=== PATIENT | male | born 1955 | race Caucasian/White ===

== ENCOUNTER 2020-04-13 11:29 | Outpatient (REF) | payer OTHER, SELFPAY | END 2020-04-13 11:30 | disposition home or self-care (01) | LOC: HO.HOSX 11:29 | PROVIDERS: Visit Provider Orthopaedic Surgery | DX: Z13.89 Encounter for screening for other disorder (principal) ==

== ENCOUNTER 2020-04-14 10:11 | Outpatient (REF) | payer OTHER, SELFPAY ==
--- NOTE | 2020-04-14 10:18 | CT_ITS ---
EXAMINATION: CT CHEST SCREENING CLINICAL INFORMATION: Nicotine dependence. COMPARISON: CT chest 04/05/2019, 10/04/2018 TECHNIQUE: Multidetector volumetric CT imaging of the chest is performed without contrast using low dose technique. Additional 2D coronal and sagittal reformatted images and axial 3D maximum intensity projection (MIP) images are generated on the CT workstation. This CT examination was performed using dose optimization techniques as appropriate, variously including the following: *Automated exposure control *Adjustment of mA and/or kV according to patient size (this includes techniques or standardized protocols for targeted exams where dose is matched to indication/reason for exam; i.e. extremities or head) *Use of iterative reconstruction technique DLP: 55 mGy-cm FINDINGS: LUNGS: The lungs are expanded. There are 2 mm nodules scattered throughout the lungs; for example, right upper lobe axial image 133/6, left upper lobe image 186/6, right upper lobe axial image 30/4, subpleural nodule in lingula axial image 273/6, and perivascular 6 mm ground-glass density right lower lobe axial image 48/4. These nodules are essentially unchanged from the last CT exam. No acute pneumonic process seen. MEDIASTINUM: The thyroid lobes are symmetric and normal. The central trachea and bronchi are widely patent. Heart size and the great vessels are normal. There is atherosclerotic calcification of thoracic arch and coronary arteries. There is no pericardial effusion. No abnormal lymph nodes seen. PLEURA: There is no pleural effusion. No pleural mass or thickening. AXILLA: Small shotty lymph nodes are seen in bilateral axilla. UPPER ABDOMEN: Visualized liver, spleen, pancreas and bilateral adrenal glands are unremarkable. OSSEOUS STRUCTURES: Mild ventral spondylosis noted. No lytic or sclerotic process seen. CT/CT lung screening IMPRESSION: Stable bilateral small pulmonary nodules. No new nodules seen. ASSESSMENT: Lung-RADS category 2: Benign RECOMMENDATION: Low-dose annual CT chest.
== END 2020-04-14 10:12 | disposition home or self-care (01) ==
LOC: HO.CT 10:11
PROVIDERS: Visit Provider Surgery
DX: F17.210 Nicotine dependence, cigarettes, uncomplicated (principal)
CPT/HCPCS: 71250

== ENCOUNTER → 2020-05-19 09:05 | Outpatient (BNVA) | payer OTHER, SELFPAY | PROVIDERS: Visit Provider Orthopaedic Surgery | DX: M17.11 Unilateral primary osteoarthritis, right knee (principal); I25.10 Atherosclerotic heart disease of native coronary artery without angina pectoris; J43.9 Emphysema, unspecified; Z98.890 Other specified postprocedural states | CPT/HCPCS: 99212; J1100 ==

== ENCOUNTER 2021-05-05 10:31 | Outpatient (REF) | payer OTHER, SELFPAY ==
[2021-05-05 13:54] LABS: Binax Internal Control QC Valid; Binax Lot number: 9864; Binax Now Covid-19 Ag Negative (Negative)
== END 2021-05-05 10:32 | disposition home or self-care (01) ==
LOC: HO.LAB 10:31
PROVIDERS: Visit Provider Internal Medicine
DX: Z20.822 Contact with and (suspected) exposure to COVID-19 (principal)
CPT/HCPCS: 36415

== ENCOUNTER 2021-08-13 12:44 | Outpatient (REF) | payer OTHER, SELFPAY ==
--- NOTE | ~2021-08-13 | CT_ITS ---
EXAMINATION: CT CHEST SCREENING CLINICAL INFORMATION: Smoker. COMPARISON: CT chest 04/14/2020 TECHNIQUE: Multidetector volumetric CT imaging of the chest is performed without contrast using low dose technique. Additional 2-D coronal and sagittal reformatted images and axial 3-D maximum intensity projection (MIP) images are generated on the CT workstation. This CT examination was performed using dose optimization techniques as appropriate, variously including the following: *Automated exposure control *Adjustment of mA and/or kV according to patient size (this includes techniques or standardized protocols for targeted exams where dose is matched to indication/reason for exam; i.e. extremities or head) *Use of iterative reconstruction technique DLP: 88 mGy-cm FINDINGS: LUNGS: The lungs are well expanded and clear of acute pneumonic consolidation. Previously seen 2 mm pulmonary nodules in both upper lobes are not visualized at this time. There is an ill-defined perivascular density measuring 6 mm in the right lower lobe on axial image 53/4, stable. No new pulmonary nodules seen. MEDIASTINUM: The heart size and the great vessels are normal caliber. The thyroid lobes are symmetric and normal. The central trachea and bronchi are widely patent. There are small shotty mediastinal lymph nodes with a pretracheal lymph node measuring 8 mm. There are coronary artery calcifications present. There is no pericardial effusion. PLEURA: There is no pleural effusion. No pleural mass or thickening. AXILLA: No lymphadenopathy. UPPER ABDOMEN: Visualized liver, spleen, pancreas, and bilateral adrenal glands are unremarkable. OSSEOUS STRUCTURES: No lytic or sclerotic process seen. CT/CT lung screening IMPRESSION: Interval resolution of 2 mm pulmonary nodules in both upper lobes. Ill-defined 6 mm perivascular ground-glass density nodule in right lower lobe is stable. ASSESSMENT: Lung-RADS category 2: Benign. RECOMMENDATION: Low-dose annual CT chest.
--- NOTE | ~2021-08-13 | XR_ITS ---
EXAMINATION: XR LUMBOSACRAL SPINE CLINICAL INFORMATION: Lumbago with sciatica, right side COMPARISON: CT abdomen and pelvis 07/31/2016 TECHNIQUE: Three views of the lumbosacral spine. FINDINGS: Mild convex right scoliotic curvature in the lumbar spine centered at L3. Vertebral body heights are preserved. Moderate to severe degenerative disc disease with endplate sclerosis at L5-S1. Minimal anterolisthesis of L3 on L4. Posterior elements are intact. Extensive atherosclerotic plaque throughout the abdominal aorta. Sacroiliac joints intact. XR/XR lumbar spine 2-3V IMPRESSION: 1. Moderate to severe degenerative disc disease at L5-S1. 2. Mild scoliotic curvature in the lumbar spine. 3. Minimal anterolisthesis of L3 on L4
== END 2021-08-13 12:45 | disposition home or self-care (01) ==
LOC: HO.XRAY 12:44
PROVIDERS: PCP General Practice; Visit Provider Physician Assistant Medical
DX: M54.41 Lumbago with sciatica, right side (principal)
CPT/HCPCS: 71271; 72100

== ENCOUNTER 2021-09-17 10:00 | Outpatient (RCR) | payer OTHER, SELFPAY | END 2021-10-28 16:46 | disposition home or self-care (01) | LOC: HO.PT 10:00 | PROVIDERS: PCP General Practice; Visit Provider General Practice | DX: M54.41 Lumbago with sciatica, right side (principal) | CPT/HCPCS: 97110; 97162; 97530 ==

== ENCOUNTER 2021-11-04 10:04 | Outpatient (REF) | payer OTHER, SELFPAY ==
--- NOTE | ~2021-11-04 | CT_ITS ---
EXAMINATION: CT CHEST WITHOUT CONTRAST CLINICAL INFORMATION: Pulmonary nodule. COMPARISON: Chest 08/13/2021. TECHNIQUE: Multidetector volumetric CT imaging of the chest was done. Axial MIP volume rendering provided. Sagittal and coronal reformatted images were obtained. This CT examination was performed using dose optimization techniques as appropriate, variously including the following: *Automated exposure control *Adjustment of mA and/or kV according to patient size (this includes techniques or standardized protocols for targeted exams where dose is matched to indication/reason for exam; i.e. extremities or head) *Use of iterative reconstruction technique DLP: 172 mGy-cm FINDINGS: ROOM SERVICE ATTENDANT: Unremarkable. LUNGS: There are two 2 mm nodules in the right upper lobe peripherally-based axial image 120/7. There is focal atelectatic changes in the lingula. A 5 mm ground-glass attenuation is seen in the right lower lobe posterior medial basal segment. No additional nodules are seen. MEDIASTINUM: The thyroid lobes are symmetric and normal. The central trachea and the bronchi are widely patent. The heart size and the great vessels are normal caliber. There are moderate coronary artery calcifications present. There is no pericardial effusion seen. No abnormal size mediastinal or hilar lymph nodes seen. PLEURA: There is no pleural effusion. No pleural mass or thickening. AXILLA: There is a 9 mm nodule in the left axilla. The chest wall is unremarkable. UPPER ABDOMEN: Visualized liver, spleen, pancreas and bilateral adrenal glands are unremarkable. There are no radiopaque gallstones. OSSEOUS STRUCTURES: No lytic or sclerotic process is seen. There is mild ventral spondylosis in the mid and lower dorsal spine. CT/CT chest wo con IMPRESSION: Two 2 mm nodules in right upper lobe are now visualized from the 2nd last exam 04/14/2022. Ground-glass nodule measuring 5 mm in the right lower lobe is stable. No new pulmonary nodules are seen. Fleischner guidelines were followed.
== END 2021-11-04 10:05 | disposition home or self-care (01) ==
LOC: HO.CT 10:04
PROVIDERS: Visit Provider General Practice
DX: R91.1 Solitary pulmonary nodule (principal)
CPT/HCPCS: 71250

== ENCOUNTER 2022-02-11 11:42 | Outpatient (REF) | payer OTHER, SELFPAY ==
--- NOTE | 2022-02-11 09:15 | EMG_ITS ---
Right tibial and peroneal motor and sensory studies were performed. Right superficial peroneal and sural sensory studies were performed. Tibial H-reflex was obtained and paraspinal muscles were tested with a needle. 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 MD ANALI Reinoso/YODIT / [id number]
== END 2022-02-11 11:43 | disposition home or self-care (01) ==
LOC: HO.NEURO 11:42
PROVIDERS: Visit Provider Family Medicine
DX: M54.41 Lumbago with sciatica, right side (principal)
CPT/HCPCS: 95886; 95909

== ENCOUNTER → 2022-04-16 11:05 | Outpatient (BNVA) | payer OTHER, SELFPAY | PROVIDERS: PCP General Practice; Visit Provider Internal Medicine Endocrinology, Diabetes & Metabolism | DX: E11.9 Type 2 diabetes mellitus without complications (principal); Z79.84 Long term (current) use of oral hypoglycemic drugs | CPT/HCPCS: 82947; 83036; 99202 ==

== ENCOUNTER 2022-04-19 08:33 | Outpatient (REF) | payer OTHER, SELFPAY ==
[2022-04-19 09:38] LABS: Creatinine Urine 108.08 mg/dL; Microalbum/Creatinine Ratio Ur 42.5 ug/mg cr
[2022-04-19 09:41] LABS: Anion Gap 10 (12-20); Blood Urea Nitrogen 8 mg/dL (9-16); Calcium 9.7 mg/dL (8.4-10.2); Carbon Dioxide 29 mmol/L (22-29); Chloride 108 mmol/L (96-108); Cholesterol 139 mg/dL; Estimated Glomerular Filt Rate > 60; Glucose Random 159 mg/dL (60-115); HDL Cholesterol 33 mg/dL; LDL Cholesterol Calculated 80 mg/dl; Potassium 4.5 mmol/L (3.3-5.1); Sodium 142 mmol/L (135-145); Triglycerides 134 mg/dL
== END 2022-04-19 08:34 | disposition home or self-care (01) ==
LOC: HO.LAB 08:33
PROVIDERS: Visit Provider Internal Medicine Endocrinology, Diabetes & Metabolism
DX: E11.9 Type 2 diabetes mellitus without complications (principal)
CPT/HCPCS: 36415; 80048; 80061; 82043

== ENCOUNTER → 2022-08-03 09:58 | Outpatient (BNVA) | payer OTHER, SELFPAY | PROVIDERS: PCP General Practice; Visit Provider Dietitian, Registered | DX: E11.9 Type 2 diabetes mellitus without complications (principal) | CPT/HCPCS: 97802 ==

== ENCOUNTER → 2022-08-31 12:26 | Outpatient (BNVA) | payer OTHER, SELFPAY | PROVIDERS: PCP General Practice; Visit Provider Dietitian, Registered | DX: E11.9 Type 2 diabetes mellitus without complications (principal) | CPT/HCPCS: 97803 ==

== ENCOUNTER 2022-09-06 14:12 | Outpatient (REF) | payer OTHER, SELFPAY ==
--- NOTE | ~2022-09-06 | XR_ITS ---
EXAMINATION: XR RIBS, LEFT CLINICAL INFORMATION: Posterior left-sided rib pain COMPARISON: Chest x-ray July 2016. TECHNIQUE: 3 views of the left ribs were obtained. Single chest x-ray performed. Chest x-ray is slightly rotated to the right. FINDINGS: No airspace consolidation. Pleural surfaces are clear. There is stable mild tortuosity of the descending thoracic aorta. No appreciable pneumothorax. Visualized ribs are intact. No acute fracture or erosive process observed. XR/XR ribs LT min 3V w CXR1V IMPRESSION: No evidence for acute process.
== END 2022-09-06 14:13 | disposition home or self-care (01) ==
LOC: HO.HHCX 14:12
PROVIDERS: Referring Provider Emergency Medicine; Visit Provider Emergency Medicine
DX: R07.81 Pleurodynia (principal)
CPT/HCPCS: 71101

== ENCOUNTER → 2022-09-09 07:52 | Outpatient (BNVA) | payer OTHER, SELFPAY | PROVIDERS: PCP General Practice; Visit Provider Registered Nurse Diabetes Educator | DX: E11.9 Type 2 diabetes mellitus without complications (principal) | CPT/HCPCS: 99211 ==

== ENCOUNTER → 2022-09-17 09:56 | Outpatient (BNVA) | payer OTHER, SELFPAY | PROVIDERS: PCP General Practice; Visit Provider Internal Medicine Endocrinology, Diabetes & Metabolism | DX: E11.9 Type 2 diabetes mellitus without complications (principal) | CPT/HCPCS: 82947; 83036; 99212 ==

== ENCOUNTER → 2022-10-28 08:24 | Outpatient (BNVA) | payer OTHER, SELFPAY | PROVIDERS: PCP General Practice; Visit Provider Registered Nurse Diabetes Educator | DX: Z13.1 Encounter for screening for diabetes mellitus (principal) | CPT/HCPCS: 95250; 99211 ==

== ENCOUNTER 2022-11-01 13:10 | Outpatient (REF) | payer OTHER, SELFPAY | END 2022-11-01 13:11 | disposition home or self-care (01) | LOC: HO.HHCX 13:10 | PROVIDERS: Visit Provider Student in an Organized Health Care Education/Training Program | DX: M54.50 Low back pain, unspecified (principal) | CPT/HCPCS: 72100 ==

== ENCOUNTER 2022-11-24 08:27 | Outpatient (AMB) | payer OTHER, SELFPAY ==
--- NOTE | 2022-11-24 08:46 | A.OFFVIS_ITS ---
Intake Intake Visit Reasons: dm Lean Process Deployment Consultant Required: Yes Lean Process Deployment Consultant Language: Pedicab Driver Name: Mallika [id number] Information Interpreted: non-clinical & clinical Allergies No Known Allergies [No Known Allergies*] Allergy (Verified 04/16/22 11:24) [facility] Comprehensive Diabetes Asmnt Most Recent Diabetes Results: Microalb/Creat Ratio 42.5 ug/mg cr 04/19/22 Cholesterol 139 mg/dL 04/19/22 HDL Cholesterol 33 mg/dL 04/19/22 Triglycerides 134 mg/dL 04/19/22 Creatinine 0.77 mg/dL (0.5-1.4) 04/19/22 Blood Urea Nitrogen 8 mg/dL (9-16) L 04/19/22 Sodium 142 mmol/L (135-145) 04/19/22 Potassium 4.5 mmol/L (3.3-5.1) 04/19/22 Chloride 108 mmol/L (96-108) 04/19/22 Carbon Dioxide 29 mmol/L (22-29) 04/19/22 Calcium 9.7 mg/dL (8.4-10.2) 04/19/22 [facility] Medical History (Updated 04/16/22 @ 11:33 by Wilver Hendrix MD) CAD (coronary artery disease) Depression Diabetes mellitus Dyslipidemia Emphysema lung History of substance abuse Hypertension Pulmonary nodule Vitamin D deficiency Surgical History History of heart surgery Family History Mother No problems noted. Father No problems noted. Social History (Updated 04/16/22 @ 11:25 by BETH Weems) Household Members: None Alcohol intake: current Patient Tobacco Use Status: Current everyday Tobacco user Tobacco use type: Cigarette Current occupational status: disabled Current occupation: right handed Assessment & Plan Assessment & Plan (1) Diabetes mellitus: Code(s): E11.9 - Type 2 diabetes mellitus without complications Plan: professional Continuous Glucose Monitor: Patients CGM information reviewed Reviewed patient's sensor data: Hypoglycemia: ? 0% Hyperglycemia:? 3% Time in Range:? 97% Average glucose for the last 2 weeks? 126 mg/dL patient's last A1c on 09/17/2022 6.2% patient has 1 episode of hypoglycemia on glucometer download reviewed with patient how to treat hypoglycemia with rule of 15s Croatian handout given at this time patient's glucose control is very good patient given the opportunity to ask questions related to diabetes care and control. at last visit with Dr. Hendrix patient was discharged back to PCP for diabetes management Patient Instructions: instructed patient if hypoglycemic events increase to contact tobacco prevention health educator Coding Level of Care Code Est Pt Level 1 (61071) Diagnoses Diabetes mellitus E11.9
== END 2022-11-24 08:49 | disposition home or self-care (01) ==
PROVIDERS: PCP General Practice; Visit Provider Registered Nurse Diabetes Educator
DX: E11.9 Type 2 diabetes mellitus without complications (principal)

== ENCOUNTER → 2022-11-24 08:27 | Outpatient (BNVA) | payer OTHER, SELFPAY | PROVIDERS: PCP General Practice; Visit Provider Registered Nurse Diabetes Educator | DX: E11.9 Type 2 diabetes mellitus without complications (principal) | CPT/HCPCS: 99211 ==

== ENCOUNTER 2023-05-04 10:44 | Outpatient (REF) | payer OTHER, SELFPAY ==
--- NOTE | ~2023-05-04 | CT_ITS ---
EXAMINATION: CT CHEST LOW-DOSE SCREENING WITHOUT CONTRAST HISTORY: Asymptomatic patient meeting criteria for lung screening. PATIENT PACK-YEAR HISTORY: 56 Current Smoker: Yes If former smoker, years since quitting: N/A COMPARISON: CT chest 11/04/2021. TECHNIQUE: Multidetector volumetric noncontrast CT imaging of the chest was obtained on a Siemens Definition 64-slice scanner using low-dose screening CT technique. Axial thin section 0.625 mm reformations in soft tissue and lung windows were obtained. Sagittal and coronal reformations were obtained. Axial MIP images were also created and reviewed. RECONSTRUCTED WIDTH: 1.25 mm x 1.[address] examination was performed using dose optimization techniques as appropriate, variously including the following: *Automated exposure control *Adjustment of mA and/or kV according to patient size (this includes techniques or standardized protocols for targeted exams where dose is matched to indication/reason for exam; i.e. extremities or head) *Use of iterative reconstruction technique TOTAL EXAM DLP: 46 mGy-cm CTDIvol: 1.21 mGy FINDINGS: LUNGS: Lungs bilaterally symmetrically expanded. Mild emphysematous changes are present. Previously seen right upper lobe 2 mm nodule is barely perceptible on the current study and is decreased in size measuring about 1 mm (5:81 compare prior 7:118). No concerning or new focal lung nodule or mass. No effusion or pneumothorax. Central airways patent. LYMPHATIC STRUCTURES: No mediastinal, hilar or axillary adenopathy or free fluid collection. THYROID GLAND: Unremarkable to the extent seen. CARDIOVASCULAR STRUCTURES: Aortic and heart size normal. Extensive coronary artery calcifications. No pericardial effusion. UPPER ABDOMEN: Included portions of the solid organs in the upper abdomen unremarkable on noncontrast imaging. OSSEOUS STRUCTURES: No suspicious focal findings. Mild degenerative changes are present in the spine. SPINAL COMPRESSION: Absent. CT/CT lung screening IMPRESSION: No findings suspicious for malignancy. Tiny right upper lobe micronodule has decreased in size. LUNG-RADS CATEGORY ASSESSMENT: Negative. INCIDENTAL FINDINGS (S CATEGORY): Finding: No incidental findings. Significance category: Normal or normal variant. RECOMMENDATION: Low-dose lung CT overall in 1 year. Visual estimate of coronary calcified plaque burden: Mild. However, this exam cannot replace a dedicated cardiac CT calcium score for accurate assessment.
== END 2023-05-04 10:45 | disposition home or self-care (01) ==
LOC: HO.CT 10:44
PROVIDERS: PCP General Practice; Visit Provider Physician Assistant Medical
DX: Z12.2 Encounter for screening for malignant neoplasm of respiratory organs (principal); F17.210 Nicotine dependence, cigarettes, uncomplicated
CPT/HCPCS: 71271

== ENCOUNTER 2023-07-08 11:08 | Outpatient (REF) | payer OTHER, SELFPAY ==
[2023-07-08 14:04] LABS: Alanine Aminotransferase 22 U/L (0-40); Albumin Level 4.3 g/dL (3.5-5.0); Alkaline Phosphatase 84 U/L (39-117); Anion Gap 10 (12-20); Aspartate Amino Transferase 19 U/L (5-37); Bilirubin Total 0.3 mg/dL (0.0-1.0); Blood Urea Nitrogen 14 mg/dL (9-16); Calcium 10.2 mg/dL (8.4-10.2); Carbon Dioxide 28 mmol/L (22-29); Chloride 106 mmol/L (96-108); Cholesterol 181 mg/dL (<200); Estimated Glomerular Filt Rate > 60; Glucose Random 177 mg/dL (60-115); HDL Cholesterol 37 mg/dL (>40); LDL Cholesterol Calculated 115 mg/dL (<100); Potassium 4.3 mmol/L (3.3-5.1); Sodium 140 mmol/L (135-145); Total Protein 7.5 g/dL (6.5-8.0); Triglycerides 148 mg/dL (<150)
[2023-07-08 14:40] LABS: Creatinine Urine 172.32 mg/dL; Microalbum/Creatinine Ratio Ur 65.5 ug/mg cr (<30)
== END 2023-07-08 11:09 | disposition home or self-care (01) ==
LOC: HO.HHCL 11:08
PROVIDERS: Visit Provider General Practice
DX: E11.65 Type 2 diabetes mellitus with hyperglycemia (principal)
CPT/HCPCS: 36415; 80053; 80061; 82043; 82570

== ENCOUNTER 2024-05-23 08:30 | Outpatient (REF) | payer OTHER, SELFPAY ==
--- NOTE | ~2024-05-23 | CT_ITS ---
CLINICAL HISTORY: F17.210 - Nicotine dependence, cigarettes, uncomplicated CT lung cancer screening (LDCT) Comparison: None Technique: Axial CT images of the chest using low-dose technique. Referring provider counseled the patient on shared decision-making for LDCT screening. Additional counseling was provided on smoking cessation. Effective radiation dose total: DLP 40 mGycm, CTDIvol 1.3 mGy. Findings: Part solid approximate 10 mm nodule medial right lower lobe pulmonary nodule current image 370 series 6 is stable to the multiple prior CTs, including 04/14/2020 CT. No appreciable new or progressive nodule. Stable scarring lingular segment left upper lobe. Few additional subtle fibronodular changes likely on the basis of mild fibrosis. Previously identified small apical lung nodules are less apparent. Mild micronodular change suggesting underlying respiratory bronchiolitis as on priors. Thoracic inlet intact. No thyroid nodule. Stable mediastinal and upper abdomen. Extensive coronary artery calcification. No pathologic appearing adenopathy. Impression: Lung rads 2. Benign appearance. Management: Continue annual screening. Category 1: Normal; continue annual screening Category 2: Benign appearance or behavior, continue annual screening Category 3: Probably benign, [address] recommended Category 4A: Suspicious, [address] recommended; may consider PET/CT Category 4B: Suspicious, Additional diagnostics and/or tissue sampling recommended Category 4X: Suspicious, Additional diagnostics and/or tissue sampling recommended Category 0: Recalls (incomplete screen due to Incomplete coverage, Noise, Respiratory motion, Expiration, Obscured by acute abnormality) This document has been electronically signed by: Alan Hunt MD on 05/23/2024 12:29:58
--- OUTSIDE RECORDS SUMMARY | 2024-05-23 08:41 | XMS_ITS | Clinical Summary ---
Author Organization [employer] Address [address] [place] [address] Care Team Providers Care Tooth Polisher Name Role Phone Yvette Hahn MD Primary Care Provider [phone] Allergies No known active allergies Medications Diclofenac Sodium 1 % gel APPLY TO THE AFFECTED AREA(S) 2 GRAMS TOPICALLY TWICE DAILY NEEDED FOR PAIN 2 Active UltiCare Mini Pen Pryor 31G X 6 MM misc USE DIRECTED WITH LANTUS EVERY EVENING 100 each 5 4 Active triamcinolone (Kenalog) 0.1 % creamIndications: Poison reji dermatitis Apply topically if needed in the morning and at bedtime for rash. Avoid face and genitals 30 g 2 4 Active carvedilol (Coreg) 6.25 MG tabletIndications :Primary hypertension Take 1 tablet (6.25 mg) by mouth with breakfast and with evening meal. 180 tablet 3 4 Active cholecalciferol (D3 Super Strength) 50 MCG (2000 UT) capsuleIndication s:Vitamin D deficiency Take 1 capsule (50 mcg) by mouth in the morning. 90 capsule 3 4 Active glipiZIDE-metFORM IN (Metaglip) 2.5-500 MG tabletIndications :Type 2 diabetes mellitus with hyperglycemia, with long-term current use of insulin ([facility]) Take 2 tablets by mouth before breakfast and before evening meal. 120 tablet 3 4 Active insulin glargine (Lantus SoloStar) 100 UNIT/ML penIndications:Ty pe 2 diabetes mellitus with hyperglycemia, with long-term current use of insulin (CMS/[facility]) Inject 40 Units under the skin at bedtime. 15 mL 8 4 12/13/19 25 Active lisinopril 10 MG tabletIndications :Essential hypertension Take 1 tablet (10 mg) by mouth in the morning. 90 tablet 3 4 Active dulaglutide (Trulicity) 0.75 MG/0.5ML solution pen-injectorIndic ations:Type 2 diabetes mellitus with hyperglycemia, with long-term current use of insulin ([facility]) Inject 0.75 mg under the skin 1 (one) time per week. 2 mL 11 4 Active dapagliflozin (Farxiga) 10 MGIndications:Typ e 2 diabetes mellitus with hyperglycemia, with long-term current use of insulin ([facility]) Take 1 tablet (10 mg) by mouth in the morning. 90 tablet 3 4 Active clopidogrel (Plavix) 75 MG tabletIndications :Acute ST elevation myocardial infarction (STEMI), unspecified artery ([facility]) Take 1 tablet (75 mg) by mouth in the morning. 90 tablet 3 4 Active atorvastatin (Lipitor) 80 MG tabletIndications :Type 2 diabetes mellitus with hyperglycemia, with long-term current use of insulin ([facility]) Take 1 tablet (80 mg) by mouth at bedtime. 90 tablet 3 4 Active aspirin (Aspirin Adult Low Strength) 81 MG EC tabletIndications :Type 2 diabetes mellitus with hyperglycemia, with long-term current use of insulin ([facility]) Take 1 tablet (81 mg) by mouth at bedtime. 90 tablet 3 4 Active Skin Protectants, Misc. (Minerin Creme) cream APPLY TOPICALLY TO SKIN NEEDED FOR DRY SKIN 454 g 1 4 Active TRUEplus Lancets 33G miscIndications:T ype 2 diabetes mellitus with hyperglycemia, with long-term current use of insulin ([facility]) USE TO TEST BLOOD SUGAR THREE TIMES DAILY 100 each 11 4 Active Alcohol Swabs (Alcohol Prep) 70 % pads USE DIRECTED FOUR TIMES DAILY 100 each 11 4 Active glucose blood (FREESTYLE LITE) test strip USE DIRECTED TO TEST BLOOD SUGAR THREE TIMES DAILY 100 strip 1 4 Active Active Problems Problem Noted Date Diagnosed Date Lung mass 11/01/2022 Osteoarthritis of right knee 01/11/[address] 10/04/2018 Type 2 diabetes mellitus 12/05/2017 Assessment & Plan (01/09/2024 12:35 PM EDT): Unable to obtain up to date sugars as patient cannot come into office, will defer A1C and foot exam to next in person visit Continue current medication regimen Assessment & Plan (07/08/2023 11:11 AM EST): Current A1c: 7.6 BMP: today Microalbumin: Foot Exam: Complete at follow up Eye Exam: 05/2023 Lipid panel: today ASCVD: Calculate pending updated labs Statin: Yes ASA: Yes JHONNY/ARB: Yes Encouraged regular aerobic exercise for improved glycemic control Encouraged daily foot checks Encouraged lean protein snacks and to avoid foods high in sugar and simple carbohydrates Treatment Goals: A1c goal: <7% FBG goal: <130 2 hour post prandial goal: <180 Moderate alcohol dependence 12/05/[address] elevation myocardial infarction (S RONN) 11/06/2012 Hyperlipidemia 05/29/2012 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 Initial goal of 30 min walk 3-5x/week. Increase as tolerated. - low-sodium diet (goal: <2g/day) and heart healthy diet such as DASH to reduce BP and prevent ASCVD. - Home BP monitoring 1-2 x day with goal of <140/90. - Seek immediate medical attention for chest pain, palpitations, SOB, syncope, or sudden changes in mental status. - Do not change or discontinue current prescriptions without first consulting health care provider Smoker 03/09/2012 Overweight (BMI 25.0-29.9) 03/09/2012 History of substance abuse 03/09/2012 Encounters Date Type Department Care Team Description 04/14/2024 Refill [facility] [address] [place] [address] Ranjana Calzada NP 04/06/2024 Refill [facility] [address] [place] [address] Yvette Hahn MD 03/23/2024 Telephone [facility] [address] [place], [place] [phone] Norma Franco [place] Appt request 03/19/2024 Refill [facility] [address] [place] [address] Yvette Hahn MD Type 2 diabetes mellitus with hyperglycemia, with long-term current use of insulin ([facility]) from Last 3 Months Immunizations Name Administration Dates Next Due Hep A, Adult 03/22/2022,04/07/2012 Hep B, adult 03/22/2022,05/29/2012,04/07/2012 Influenza injectable quadriv alent IIV4 with preservative 03/21/2019,03/07/2018,01/17/2017 Influenza injectable quadriv alent preservative free 03/22/2022,03/31/2021 Influenza, IIV3, injectable 01/29/2014, 2 Influenza, seasonal, injecta ble, preservative free 02/15/2012 Pfizer Covid-19 Vaccine 12+ 07/08/2023 Pneumococcal Conjugate PCV 20 03/22/2022 Pneumococcal Polysaccharide PPSV23 07/31/2016, Tdap 10/10/2013 Zoster, Recombinant 03/03/2020,12/31/2019 Zoster, live 04/06/2017 Social History Tobacco Use Types Packs/Day Years Used Date Smoking Tobacco: Every Day Cigarettes 1 25 Passive Smoke Exposure: Never Smokeless Tobacco: Never Tobacco Cessation:Ready to Q uit: Not Asked; Counseling Given: Not Answered Alcohol Use Standard Drinks/Week Comments Yes 0 (1 standard drink = 0.6 oz pur e alcohol) Alcohol Answer Date Recorded Frequency of Alcohol Consumption Not on file 07/08/2023 Average Number of Drinks Not on file 024 Frequency of Binge Drinking Not on file 12/2023 Score 0 07/08/2023 Depression Answer Date Recorded Patient Health Questionnaire-9 Score 0 07/08/2023 Patient Health Questionnaire-9 Score 0 07/08/2023 Last PHQ-9: Questionnaire Data Not on file 0 07/08/2023 Housing Stability Answer Date Recorded What is your housing situation today? I have jozef glynn 07/08/[address] you li ve. Do you have problems with any of the following? None of the above 07/08/2023 Food Insecurity Answer Date Recorded Within the past 12 months, y ou worried that your food would run out before you got money to buy more: Never True 07/08/2023 Within the past 12 months,th e food you bought just didn't last and you didn't have enough money to get more: Never True 12/2023 Transportation Answer Date Recorded In the past 12 months, has l ack of transportation kept you from medical appts, meetings, work or from getting things needed for daily living? Yes, it has kept me from medical appointments or getting medications. 07/08/2023 Utilities Answer Date Recorded In the past 12 months, has t he electric, gas, oil or water company threatened to shut off services in your home? No 07/08/2023 Depression Answer Date Recorded Patient Health Questionnaire-2 Score 0 07/08/2023 Sex and Gender Information Value Date Recorded Sex Assigned at Male 03/01/2022 10:22 AM EDT Legal Sex Male 10:22 AM EDT Gender Identity Male 03/01/2022 10:22 AM EDT Sexual Orientation Straight 03/01/2022 10 :22 AM EDT Last Filed Vital Signs Vital Sign Reading Time Taken Comments Blood Pressure 170/96 07/08/2023 10:37 AM EST Pulse 71 07/08/2023 10:37 AM EST Temperature 36.3 ??C (97.4 ??F) 07/08/2023 10:[address] Respiratory Rate 20 07/08/2023 10:37 AM EST Oxygen Saturation 98% 07/08/2023 10:37 AM EST Inhaled Oxygen Concentration - - Weight 77.1 kg (170 lb) 07/08/2023 10:37 AM EST Height 172.7 cm (5' 8 ) 07/08/2023 10:37 AM EST Body Mass Index 25.85 07/08/2023 10:37 AM EST Plan of Treatment Upcoming Encounters Date Type Department Care Team (Late st Contact Info) Description 07/13/2024 10:30 AM EDT Office Visit [facility] [address] [place] [address] Yvette Hahn MD [address] [place] [address] Health Maintenance Due Date Last Done Comments CT Colonography 1955 Colonoscopy 1957 Colorectal Cancer Screening 1957 FIT DNA/Cologuard 1957 FIT 1957 FOBT 1957 Sigmoidoscopy 1957 Diabetes: Foot Exam 1967 RSV Patients and Patients Aged 60 years or older (1 - Risk 60-74 years 1-dose series) 2017 Diabetes: Hemoglobin A1C 10/08/2023 024, 07/23/2021, 06/11/2021, Additional history exists DTaP/Tdap/Td Vaccines (2 - Td or Tdap) 10/11/2023 10/10/2013 COVID-19 Vaccine ( season) 2024 07/08/2023, 08/13/2021, 03/31/2021, Additional history exists Influenza Vaccine (#1) 2024 , 03/31/2021, 03/21/2019, Additional history exists Lung Cancer Screening 05/04/2024 05/04/2023 Alcohol/Substance Use Screening 07/07/2024 07/08/2023 Depression Screening 07/07/2024 07/08/2023, 07/08/19 Diabetes: Urine Protein Screening 07/07/2024 07/08/2023, 04/19/2022, 07/23/2021, Additional history exists Lipid Panel 07/07/2024 07/08/2023, 04/01, 07/23/2021, Additional history exists SDOH Screening 07/07/2024 07/08/2023 Tobacco Screening 01/08/2025 01/09/2024 Eye Exam 05/13/2025 05/13/2023 Zoster Vaccines Completed 03/03/2020, 12/02, 04/06/2017 Hepatitis C Screening Completed 10/27/2020 Hepatitis A Vaccines Completed 03/22/2022, 04/07/20 12 Hepatitis B Vaccines Completed 03/22/2022, 05/29/2012, 04/07/2012 Pneumococcal Vaccine: 65+ Years Completed 03/22/2022, 07/31/2016, 02/15/2012 HIB Vaccines Aged Out No longer eligi ble based on patient's age to complete this topic HPV Vaccines Aged Out No longer eligi ble based on patient's age to complete this topic IPV Vaccines Aged Out No longer eligi ble based on patient's age to complete this topic Meningococcal Vaccine Aged Out No krzysztof george eligible based on patient's age to complete this topic RSV under 20 months Aged Out No longe r eligible based on patient's age to complete this topic Rotavirus Vaccines Aged Out No longer eligible based on patient's age to complete this topic Procedures Procedure Name Priority Date/Time Associated Diagnosis Comments ALBUMIN, RANDOM URINE W/CREATININE Routine 07/08/2023 11:10 AM EST Type 2 diabetes mellitus with hyperglycemia, without long-term current use of insulin (CMS/HCC) LIPID PANEL, STANDARD Routine 07/08/2023 11:10 AM EST Type 2 diabetes mellitus with hyperglycemia, without long-term current use of insulin (CMS/HCC) POCT GLYCOSYLATED HEMOGLOBIN (HGB A1C) Routine 07/08/2023 10:41 AM EST Type 2 diabetes mellitus with hyperglycemia, without long-term current use of insulin ([facility]) LDCT LUNG SCREENING Routine 05/04/2023 1 1:20 AM EST ZZZ HISTORICAL HEPATITIS C AB W/REFL TO HCV RNA, QN, PCR Routine 10/27/2020 8:55 AM EDT from Last 3 Months or Most Recently Relevant to Health Maintenance Results * (ABNORMAL) Albumin, Random Urine W/Creatinine (07/08/2023 11:10 AM EST) Creatinine, Urine 172.32 mg/dL [facility] Microalbumin Urine 113.0 mg/L H [facility] Microalbum Creatinine Ratio Ur 65.5(H) <30 ug/mg cr [facility] Comment:Albumin/Creatinine R atio Reference Ranges: Normal: < 30 ug/mg creatinine Microalbuminuria: 30 - 300 ug/mg creatinineClinical Albuminuria: > 300 ug/mg creatinine Urine (Urine, Random) 07/08/2023 11:10 AM EST 07/08/2023 12:56 PM EST us Yvette Hahn MD LAB URINE ORDERABLES Final Res ult [facility] [address] [place] [phone] * (ABNORMAL) Lipid Panel, Standard (07/08/2023 11:10 AM EST) Triglycerides 148 <150 mg/dL [facility] Comment:Desirable Triglyceri de: less than 150 mg/dLBorderline High Triglyceride 150-199 mg/dLHigh Triglyceride: 200-499 mg/dLVery High Triglyceride: greater than or equal to 5OO mg/dL Cholesterol 181 <200 mg/dL [facility] Comment:Desirable Cholestero l: less than 200 mg/dLBorderline High Cholesterol: 200-239 mg/dLHigh Cholesterol: greater than 239 mg/dL LDL Cholesterol Calculated 115(H) <100 mg/dL [facility] Comment:Desirable LDL: less than 100 mg/dLNear Optimal/Above Optimal LDL: 110- 129 mg/dLBorderline High LDL: 130-159 mg/dLHigh LDL: 160-189 mg/dLVery High LDL: greater than or equal to 190 mg/dL HDL Cholesterol 37(L) >40 mg/dL [facility] Comment:Desirable HDL: great er than 40 mg/dL Note: This HDL assay may give artificially low results in patients with liver disease. Blood Venous blood specimen / Unknown 07/08/2023 11:10 AM EST 07/08/2023 12:56 PM EST us Yvette Hahn MD LAB BLOOD ORDERABLES Final Res ult [facility] [address] [place] [phone] * (ABNORMAL) POCT glycosylated hemoglobin (Hgb A1c) (07/08/2023 10:41 AM EST) Hemoglobin A1C 7.6(A) 4.0 - 6.0 % QC Media Lot # [id number] Lot# Expiration Date 112,125 Blood Capillary blood specimen / Unknown 07/08/2023 10:41 AM EST us Yvette Hahn MD POINT OF CARE TEST ENTER/EDIT ORDERABLES Final Result * CT Lung Screening Low dose (05/04/2023 11:20 AM EST) Anatomical Region Laterality Modality Lung Computed Tomogra phy 05/04/2023 11:2 0 AM EST Narrative 05/12/2023 11:34 AM EST ? [facility] ?[address] ?[place] [address] ? CT Scan Report ? Signed ? Patient: Sebas Hamm ?MR#: [id number] ?? [id number] ? : 1955 ?Acct:[id number] ? Age/Sex: 68 / M ?ADM Date: 05/04/23 ? Loc: HO.CT ? Attending Dr: Jeni Wheat PA-C ? Ordering Physician: Jeni Wheat PA-C ?? Date of Service: 05/04/23 ?? Procedure(s): CT lung screening ?? Accession Number(s): [id number] ? cc: Yvette Hahn; Jeni Wheat PA-C ? EXAMINATION: ?? CT CHEST LOW-DOSE SCREENING WITHOUT CONTRAST ? HISTORY: ?? Asymptomatic patient meeting criteria for lung screening. ? PATIENT PACK-YEAR HISTORY: 56 ?? Current Smoker: Yes ?? If former smoker, years since quitting: N/A ? COMPARISON: ?? CT chest 11/04/2021. ? TECHNIQUE: ?? Multidetector volumetric noncontrast CT imaging of the chest was ?? obtained on a Siemens Definition 64-slice scanner using low-dose ?? screening CT technique. Axial thin section 0.625 mm reformations in ?? soft tissue and lung windows were obtained. Sagittal and coronal ?? reformations were obtained. Axial MIP images were also created and ?? reviewed. ? RECONSTRUCTED WIDTH: ?? 1.25 mm x 1.25 mm ? This CT examination was performed using dose optimization techniques as ?? appropriate, variously including the following: ?? *Automated exposure control ?? *Adjustment of mA and/or kV according to patient size (this includes ?? techniques or standardized protocols for targeted exams where dose is ?? matched to indication/reason for exam; i.e. extremities or head) ?? *Use of iterative reconstruction technique ? TOTAL EXAM DLP: ?? 46 mGy-cm ? CTDIvol: ?? 1.21 mGy ? FINDINGS: ? LUNGS: Lungs bilaterally symmetrically expanded. Mild emphysematous ?? changes are present. Previously seen right upper lobe 2 mm nodule is ?? barely perceptible on the current study and is decreased in size ?? measuring about 1 mm (5:81 compare prior 7:118). No concerning or new ?? focal lung nodule or mass. No effusion or pneumothorax. Central airways ?? patent. ? LYMPHATIC STRUCTURES: No mediastinal, hilar or axillary adenopathy or ?? free fluid collection. ? THYROID GLAND: Unremarkable to the extent seen. ? CARDIOVASCULAR STRUCTURES: Aortic and heart size normal. Extensive ?? coronary artery calcifications. No pericardial effusion. ? UPPER ABDOMEN: Included portions of the solid organs in the upper ?? abdomen unremarkable on noncontrast imaging. ? OSSEOUS STRUCTURES: No suspicious focal findings. Mild degenerative ?? changes are present in the spine. ? SPINAL COMPRESSION: Absent. ? CT/CT lung screening ?? IMPRESSION: ?? No findings suspicious for malignancy. Tiny right upper lobe ?? micronodule has decreased in size. ? LUNG-RADS CATEGORY ?? ASSESSMENT: Negative. ? INCIDENTAL FINDINGS (S CATEGORY): ?? Finding: No incidental findings. ?? Significance category: Normal or normal variant. ? RECOMMENDATION: ?? Low-dose lung CT overall in 1 year. ? Visual estimate of coronary calcified plaque burden: Mild. However, ?? this exam cannot replace a dedicated cardiac CT calcium score for ?? accurate assessment. ? Dictated By: ?Alex Richards MD ? Signed By: ?<Electronically signed by Alex Richards MD in OV> ? 05/12/231130 ? DD/ 1120 ? TD/TT: ? [place]: SS ? Procedure Note [place], Image - 05/12/[address] [address] [address] Scan Report Signed Patient: Sebas HammMR#: [id number] : 1955cct:[id number] Age/Sex: 68 / MADM Date: 05/04/23 Loc: HO.CT Attending Dr: Jeni Wheat PA-C Ordering Physician: Jeni Wheat PA-C Date of Service: 05/04/23 Procedure(s): CT lung screening Accession Number(s): [id number] cc: Yvette Hahn; Jeni Wheat PA-C EXAMINATION: CT CHEST LOW-DOSE SCREENING WITHOUT CONTRAST HISTORY: Asymptomatic patient meeting criteria for lung screening. PATIENT PACK-YEAR HISTORY: 56 Current Smoker: Yes If former smoker, years since quitting: N/A COMPARISON: CT chest 11/04/2021. TECHNIQUE: Multidetector volumetric noncontrast CT imaging of the chest was obtained on a Siemens Definition 64-slice scanner using low-dose screening CT technique. Axial thin section 0.625 mm reformations in soft tissue and lung windows were obtained. Sagittal and coronal reformations were obtained. Axial MIP images were also created and reviewed. RECONSTRUCTED WIDTH: 1.25 mm x 1.[address] examination was performed using dose optimization techniques as appropriate, variously including the following: *Automated exposure control *Adjustment of mA and/or kV according to patient size (this includes techniques or standardized protocols for targeted exams where dose is matched to indication/reason for exam; i.e. extremities or head) *Use of iterative reconstruction technique TOTAL EXAM DLP: 46 mGy-cm CTDIvol: 1.21 mGy FINDINGS: LUNGS: Lungs bilaterally symmetrically expanded. Mild emphysematous changes are present. Previously seen right upper lobe 2 mm nodule is barely perceptible on the current study and is decreased in size measuring about 1 mm (5:81 compare prior 7:118). No concerning or new focal lung nodule or mass. No effusion or pneumothorax. Central airways patent. LYMPHATIC STRUCTURES: No mediastinal, hilar or axillary adenopathy or free fluid collection. THYROID GLAND: Unremarkable to the extent seen. CARDIOVASCULAR STRUCTURES: Aortic and heart size normal. Extensive coronary artery calcifications. No pericardial effusion. UPPER ABDOMEN: Included portions of the solid organs in the upper abdomen unremarkable on noncontrast imaging. OSSEOUS STRUCTURES: No suspicious focal findings. Mild degenerative changes are present in the spine. SPINAL COMPRESSION: Absent. CT/CT lung screening IMPRESSION: No findings suspicious for malignancy. Tiny right upper lobe micronodule has decreased in size. LUNG-RADS CATEGORY ASSESSMENT: Negative. INCIDENTAL FINDINGS (S CATEGORY): Finding: No incidental findings. Significance category: Normal or normal variant. RECOMMENDATION: Low-dose lung CT overall in 1 year. Visual estimate of coronary calcified plaque burden: Mild. However, this exam cannot replace a dedicated cardiac CT calcium score for accurate assessment. Dictated By: Alex Richards MD Signed By: <Electronically signed by Alex Richards MD in OV> 05/12/23 1131 DD/ 1120 TD/TT: [place]: [facility] External Provider IMG CT PROCEDURES Final Result * HEPATITIS C AB W/REFL TO HCV RNA, QN, PCR (10/27/2020 8:55 AM EDT) HEPATITIS C ANTIBODY NON-REACT [facility] NON-REACT [facility] INDEX 0.03 <1.00 [facility] Comment: ?? HCV antibody was non-reactive. There is no laboratory ?? evidence of HCV infection. ?? In most cases, no further action is required. However, if recent HCV exposure is suspected, a test for HCV RNA (test code 29134) is suggested. ?? For additional information please refer to http://education.Trendsetters/faq/HZB42i8 (This link is being provided for informational/ educational purposes only.) ?? 10/27/2020 8:55 AM EDT Yvette Hahn MD HISTORICAL/NON ORDERABLE LABS Final Result [facility] [address] from Last 3 Months or Most Recently Relevant to Health Maintenance Insurance [facility] Care Teams Tooth Polisher Relationship Specialty Start Date End Date Yvette Hahn MD [address] [place] [address] PCP - General Family Medicine 04/15/20
--- OUTSIDE RECORDS SUMMARY | 2024-05-23 08:42 | XMS_ITS | Encounter Summary ---
Author Organization [employer] Address [address] [facility] [address] 7[address] [place] [address] Care Team Providers Care Environmental Property Assessor Name Role Phone Yvette Hahn MD Primary Care Provider [phone] Reason for Referral * Consultation (Routine) - Authorized Specialty Diagnoses / Procedures Referred By Contac t Referred To Contact Pharmacy Diagnoses Primary hypertension Yvette Hahn MD [address] [place] [address] Phone: tel: fax: Referral ID Status Reason Start Date Expiration Date Visits Requested Visits Authorized [id number] Authorized Consult and Treat 08/01/2023 07/31/2024 1 1 Encounter Details Date Type Department Care Team (Late st Contact Info) Description 08/01/2023 Orders Only [facility] [address] [place] [address] [phone] Yvette Hahn MD [address] [place] [address] [phone] Primary hypertension (Primary Dx) Social History Tobacco Use Types Packs/Day Years Used Date Smoking Tobacco: Every Day Cigarettes 1 25 Passive Smoke Exposure: Never Smokeless Tobacco: Never Alcohol Use Standard Drinks/Week Comments Yes 0 [...] Orientation Straight 03/01/2022 10 :22 AM EDT documented as of this encounter Plan of Treatment Upcoming Encounters Date Type Department Care Team (Late st Contact Info) Description 07/13/2024 10:30 AM EDT Office Visit [facility] [address] [place] [address] Yvette Hahn MD [address] [place] [address] Scheduled Referrals Name Type Priority Associated Diagnoses Orde r Schedule Referral to Pharmacy CDTM Outpatient Referral Routine Primary hypertension Ordered: 08/01/2023 documented as of this encounter Visit Diagnoses Diagnosis Primary hypertension- Primary Unspecified essential hypertension documented in this encounter Additional Health Concerns Assessment Noted Time PHQ-9 Depression Total Score: 0 07/08/19 24 10:39 AM EST documented as of this encounter Care Teams Environmental Property Assessor Relationship Specialty Start Date End Date Yvette Hahn MD [address] [place] [address] PCP - General Family Medicine 04/15/20 documented as of this encounter
--- OUTSIDE RECORDS SUMMARY | 2024-05-23 08:42 | XMS_ITS | Encounter Summary ---
Author Organization [employer] Address [address] [facility] 7t [place] [address] Care Team Providers Care Textile Conservator Name Role Phone Yvette Hahn MD Primary Care Provider [phone] Encounter Details Date Type Department Care Team (Late st Contact Info) Description 12/28/2022 Orders Only [facility] PEDS [address] [place] [address] Chasity Robins LPN Social History Tobacco Use Types Packs/Day Years Used Date Smoking Tobacco: Never Passive Smoke Exposure: Never Smokeless Tobacco: Never Sex and Gender Information Value Date Recorded Sex Assigned at Male 03/01/2022 10:22 AM EDT Legal Sex Male 10:22 AM EDT Gender Identity Male 03/01/2022 10:22 AM EDT Sexual Orientation Straight 03/01/2022 10 :22 AM EDT documented as of this encounter Plan of Treatment Upcoming Encounters Date Type Department Care Team (Late st Contact Info) Description 07/13/2024 10:30 AM EDT Office Visit [facility] [address] [place] [address] Yvette Hahn MD [address] [place] [address] documented as of this encounter Visit Diagnoses Not on filedocumented in this encounter Care Teams Textile Conservator Relationship Specialty Start Date End Date Yvette Hahn MD [address] [place] [address] PCP - General Family Medicine 04/15/20 documented as of this encounter
--- OUTSIDE RECORDS SUMMARY | 2024-05-23 08:42 | XMS_ITS | Encounter Summary ---
Author Organization [facility] Address [address] [facility] 7t [place] [address] Care Team Providers Care Sales Representative Health Insurance Name Role Phone Yvette Hahn MD Primary Care Provider [phone] Encounter Details Date Type Department Care Team (Late st Contact Info) Description 07/12/2022 Orders Only [facility] [address] [place] [address] Chasity Robins LPN Social History Tobacco Use Types Packs/Day Years Used Date Smoking Tobacco: Never Assessed Sex and Gender Information Value Date Recorded Sex Assigned at Male 03/01/2022 10:22 AM EDT Legal Sex Male 10:22 AM EDT Gender Identity Male 03/01/2022 10:22 AM EDT Sexual Orientation Straight 03/01/2022 10 :22 AM EDT documented as of this encounter Plan of Treatment Upcoming Encounters Date Type Department Care Team (Late st Contact Info) Description 07/13/2024 10:30 AM EDT Office Visit [facility] [address] [place] [address] Yvette Hahn MD [address] [place] [address] documented as of this encounter Visit Diagnoses Not on filedocumented in this encounter Care Teams Sales Representative Health Insurance Relationship Specialty Start Date End Date Yvette Hahn MD [address] [place] [address] PCP - General Family Medicine 04/15/20 documented as of this encounter
--- OUTSIDE RECORDS SUMMARY | 2024-05-23 08:42 | XMS_ITS | Encounter Summary ---
Author Organization [employer] [facility] Address [address] [facility] 7t [place] [address] Care Team Providers Care Physician Scribe Name Role Phone Yvette Hahn MD Primary Care Provider [phone] Encounter Details Date Type Department Care Team (Late st Contact Info) Description 05/21/2022 Orders Only [facility]S [address] [place] [address] Chasity Robins LPN Social History Tobacco Use [...] Description 07/13/2024 10:30 AM EDT Office Visit [facility] [address] [place] [address] Yvette Hahn MD [address] [place] [address] documented as of this encounter Visit Diagnoses Not on filedocumented in this encounter Care Teams Physician Scribe Relationship Specialty Start Date End Date Yvette Hahn MD [address] [place] [address] PCP - General Family Medicine 04/15/20 documented as of this encounter
--- OUTSIDE RECORDS SUMMARY | 2024-05-23 08:42 | XMS_ITS | Encounter Summary ---
Author Organization [employer] [facility] Address [address] [facility] 7t [place] [address] Care Team Providers Care Dry Press Operator Helper Name Role Phone Yvette Hahn MD Primary Care Provider [phone] Encounter Details Date Type Department Care Team (Late st Contact Info) Description 08/09/2022 Orders Only [facility] [address] [place] [address] Geovanna Villagomez LPN Social History Tobacco Use Types Packs/Day [...] Description 07/13/2024 10:30 AM EDT Office Visit [facility] [address] [place] [address] Yvette Hahn MD [address] [place] [address] documented as of this encounter Procedures Procedure Name Priority Date/Time Associated Diagnosis Comments XR RIBS 3 VIEWS LEFT W CHEST Routine 09/06/2022 2:37 PM EDT documented in this encounter Results * XR Ribs 3 Views Left w/ Chest (09/06/2022 2:37 PM EDT) Anatomical Region Laterality Modality Radiographic Terra ging 09/06/2022 2:37 PM EDT Narrative 09/06/2022 3:43 PM EDT ?[facility] ?[address] ?[place] [address] ?XRay Report ? Signed ? Patient: Hansel,Sebas ?MR#: [id number] ?? [id number] ? : 1955 ?Acct:[id number] ? Age/Sex: 67 / M ?ADM Date: 09/06/22 ? Loc: HO.HHCX ? Attending Dr: Porter Roberts ? Ordering Physician: Porter Carvajal ?? Date of Service: 09/06/22 ?? Procedure(s): XR ribs LT min 3V w CXR1V ?? Accession Number(s): [id number] ? cc: Porter Carvajal ? EXAMINATION: ?? XR RIBS, LEFT ? CLINICAL INFORMATION: ?? Posterior left-sided rib pain ? COMPARISON: ?? Chest x-ray July 2016. ? TECHNIQUE: ?? 3 views of the left ribs were obtained. Single chest x-ray performed. ?? Chest x-ray is slightly rotated to the right. ? FINDINGS: ?? No airspace consolidation. Pleural surfaces are clear. There is stable ?? mild tortuosity of the descending thoracic aorta. No appreciable ?? pneumothorax. ? Visualized ribs are intact. No acute fracture or erosive process ?? observed. ? XR/XR ribs LT min 3V w CXR1V ?? IMPRESSION: ?? No evidence for acute process. ? Dictated By: ?David Barrett ? Signed By: ?<Electronically signed by David ??Arnold in [place]> ? 09/06/22 1540 ? DD/ 36 ? TD/TT: ? [employer] Accounts Manager: ? Procedure Note Alexia Morgan - 09/20/[address] [address] XRay Report Signed Patient: Sebas Hamm#: [id number] : 7Acct:[id number] Age/Sex: 67 / MADM Date: 09/06/22 Loc: HO.HHCX Attending Dr: Porter Roberts Ordering Physician: Porter Carvajal Date of Service: 09/06/22 Procedure(s): XR ribs LT min 3V w CXR1V Accession Number(s): [id number] cc: Porter Carvajal EXAMINATION: XR RIBS, LEFT CLINICAL INFORMATION: Posterior left-sided rib pain COMPARISON: Chest x-ray July 2016. TECHNIQUE: 3 views of the left ribs were obtained. Single chest x-ray performed. Chest x-ray is slightly rotated to the right. FINDINGS: No airspace consolidation. Pleural surfaces are clear. There is stable mild tortuosity of the descending thoracic aorta. No appreciable pneumothorax. Visualized ribs are intact. No acute fracture or erosive process observed. XR/XR ribs LT min 3V w CXR1V IMPRESSION: No evidence for acute process. Dictated By: David Barrett Signed By: <Electronically signed by David Barrett in [place]> 09/06/22 1540 DD/ 1437 TD/TT: Promotions Firm Accounts Manager: [facility] External Provider IMG XR PROCEDURES Final Result documented in this encounter Visit Diagnoses Not on filedocumented in this encounter Care Teams Dry Press Operator Helper Relationship Specialty Start Date End Date Yvette Hahn MD [address] [place] [address] PCP - General Family Medicine 04/15/20 documented as of this encounter
== END 2024-05-23 08:31 | disposition home or self-care (01) ==
LOC: HO.CT 08:30
PROVIDERS: PCP General Practice; Visit Provider Physician Assistant Medical
DX: Z12.2 Encounter for screening for malignant neoplasm of respiratory organs (principal); F17.210 Nicotine dependence, cigarettes, uncomplicated
CPT/HCPCS: 71271

== ENCOUNTER → 2024-05-23 08:33 | Outpatient (BNV) | payer OTHER, SELFPAY | PROVIDERS: PCP General Practice; Visit Provider Radiology Diagnostic Radiology | DX: F17.210 Nicotine dependence, cigarettes, uncomplicated (principal) | CPT/HCPCS: 71271 ==

== ENCOUNTER 2024-07-13 11:26 | Outpatient (REF) | payer OTHER, SELFPAY ==
--- OUTSIDE RECORDS SUMMARY | 2024-07-13 13:14 | XMS_ITS | Encounter Summary ---
Author Organization [employer] Address [address] [facility] [address] [place] [address] Care Team Providers Care Plush Finisher Name Role Phone Yvette Hahn MD Primary Care Provider [phone] Reason for Visit * Reason Comments Pre-visit Planning SDOH screening negat josé luis and tobacco screening negative Encounter Details Date Type Department Care Team ([facility] st Contact Info) Description 07/06/2024 Patient Outreach [facility] [address] [place] [address] Yvette Hahn MD [address] [place] [address] Pre-visit Planning (SDOH screening negative and tobacco screening negative) Social History Tobacco Use Types Packs/Day Years Used Date Smoking Tobacco: Every Day Cigarettes 1 25 Passive Smoke Exposure: Never Smokeless Tobacco: Never Alcohol Use Standard Drinks/Week Comments Yes 0 (1 standard drink = 0.6 oz pur e alcohol) Depression Answer Date Recorded Patient Health Questionnaire-9 [...] from getting things needed for daily living? No 07/06/2024 Utilities Answer Date Recorded In the past 12 months, has t he electric, gas, oil or water company threatened to shut off services in your home? No 07/08/2023 Depression Answer Date Recorded Patient Health Questionnaire-2 Score 0 07/08/2023 Internet Access Answer Date Recorded Internet Access Q1 Yes 07/06/2024 Internet Access Q2 Not on file 07/06/2024 Sex and Gender Information Value Date Recorded Sex Assigned at Male 03/01/2022 10:22 AM EDT Legal Sex Male 10:22 AM EDT Gender Identity Male 03/01/2022 10:22 AM EDT Sexual Orientation Straight 03/01/2022 10 :22 AM EDT documented as of this encounter Progress Notes * Portia Merino - 07/06/2024 8:09 AM EST CC Portia placed successful outbound call to patient for pre-visit planning. Patient name and confirmed. Patient confirms appt date and time, and has transportation. Biggest concern for appointment at this time is none Patient advised to bring to appointment a photo id and insurance card. Appropriate screenings completed in anticipation of appointment. documented in this encounter Plan of Treatment Not on file documented as of this encounter Visit Diagnoses Not on filedocumented in this encounter Additional Health Concerns Assessment Noted Time PHQ-9 Depression Total Score: 0 07/08/19 24 10:39 AM EST documented as of this encounter Care Teams Plush Finisher Relationship Specialty Start Date End Date Yvette Hahn MD [address] [place] [address] PCP - General Family Medicine 04/15/20 documented as of this encounter
--- OUTSIDE RECORDS SUMMARY | 2024-07-13 13:14 | XMS_ITS | Encounter Summary ---
Author Organization [employer] Address [address] [facility] [address] 7[address] [place] [address] Care Team Providers Care Examination Grader Name Role Phone Yvette Hahn MD Primary Care Provider [phone] Encounter Details Date Type Department Care Team (Latest Contact Info) Description 07/13/2024 Travel Social History Tobacco Use Types Packs/Day Years Used Date Smoking Tobacco: Every Day Cigarettes 1 25 Passive Smoke Exposure: Never Smokeless Tobacco: Never Alcohol Use Standard Drinks/Week Comments Yes 0 (1 standard drink = 0.6 oz pur e alcohol) Depression Answer Date Recorded Patient Health Questionnaire-9 Score 0 07/13/2024 Patient Health Questionnaire-9 Score 0 07/13/2024 Last PHQ-9: Questionnaire Data Not on file 0 07/13/2024 Housing Stability Answer Date Recorded What is [...] Date Recorded Patient Health Questionnaire-2 Score 0 07/13/2024 Internet Access Answer Date Recorded Internet Access Q1 Yes 07/06/2024 Internet Access Q2 Not on file 07/06/2024 Sex and Gender Information Value Date Recorded Sex Assigned at Male 03/01/2022 10:22 AM EDT Legal Sex Male 10:22 AM EDT Gender Identity Male 03/01/2022 10:22 AM EDT Sexual Orientation Straight 03/01/2022 10 :22 AM EDT documented as of this encounter Plan of Treatment Not on file documented as of this encounter Visit Diagnoses Not on filedocumented in this encounter Additional Health Concerns Assessment Noted Time PHQ-9 Depression Total Score: 0 07/14/19 25 10:54 AM EDT documented as of this encounter Care Teams Examination Grader Relationship Specialty Start Date End Date Yvette Hahn MD [address] [place] [address] PCP - General Family Medicine 04/15/20 documented as of this encounter
--- OUTSIDE RECORDS SUMMARY | 2024-07-13 13:14 | XMS_ITS | Encounter Summary ---
Author Organization [employer] [facility] Address [address] [facility] 7t [place] [address] Care Team Providers Care Quiller Machine Fixer Name Role Phone Yvette Hahn MD Primary Care Provider [phone] Reason for Referral * Medications - Closed Specialty Diagnoses / Procedures Referred By Mike garvey Referred To Contact Diagnoses Type 2 diabetes mellitus with hyperglycemia, with long-term current use of insulin ([facility]) Yvette Hahn MD [address] [place] [address] Phone: tel: fax: Referral ID Status Reason Start Date Expiration Date Visits Re quested Visits Authorized [id number] Closed 1 1 * Medications - Closed Specialty Diagnoses / Procedures Referred By Mike garvey Referred To Contact Diagnoses Type 2 diabetes mellitus with hyperglycemia, with long-term current use of insulin ([facility]) Yvette Hahn MD [address] [place] [address] Phone: tel: fax: Referral ID Status Reason Start Date Expiration Date Visits Re quested Visits Authorized [id number] Closed 1 1 Reason for Visit * Reason Comments Diabetes Hypertension Encounter Details Date Type Department Care Team ([facility] st Contact Info) Description 07/13/2024 10:30 AM EDT Office Visit [facility] [address] [place] [address] Yvette Hahn MD [address] [place], [place] [phone] Type 2 diabetes mellitus with hyperglycemia, with long-term current use of insulin ([facility]); Encounter for immunization Social History Tobacco Use Types Packs/Day Years [...] AM EDT documented as of this encounter Last Filed Vital Signs Vital Sign Reading Time Taken Comments Blood Pressure 164/90 07/13/2024 10:54 AM EDT ma nually Pulse 70 07/13/2024 10:52 AM EDT Temperature 36.2 ??C (97.1 ??F) 07/13/2024 10:52 AM E DT Respiratory Rate 20 07/13/2024 10:52 AM EDT Oxygen Saturation - - Inhaled Oxygen Concentration - - Weight 77.2 kg (170 lb 4 oz) 07/13/2024 10:52 AM EDT Height 175.3 cm (5' 9 ) 07/13/2024 10:52 AM EDT Body Mass Index 25.14 07/13/2024 10:52 AM EDT documented in this encounter Plan of Treatment Scheduled Orders Name Type Priority Associated Diagnoses Orde r Schedule Lipid Panel, Standard Lab Routine Type 2 diabetes mellitus with hyperglycemia, with long-term current use of insulin ([facility]) Expected: 07/13/2024 (Approximate), Expires: 07/13/2025 Albumin, Random Urine W/Creatinine Lab Routine Type 2 diabetes mellitus with hyperglycemia, with long-term current use of insulin ([facility]) Expected: 07/13/2024 (Approximate), Expires: 07/13/2025 Comprehensive Metabolic Panel Lab Routine Type 2 diabetes mellitus with hyperglycemia, with long-term current use of insulin ([facility]) Expected: 07/13/2024 (Approximate), Expires: 07/13/2025 documented as of this encounter Procedures Procedure Name Priority Date/Time Associated Diagnosis Comments POCT GLYCATED HEMOGLOBIN, TOTAL Routine 07/13/2024 10:57 AM EDT Type 2 diabetes mellitus with hyperglycemia, with long-term current use of insulin ([facility]) POCT GLUCOSE Routine 07/13/2024 10:56 AM EDT Type 2 diabetes mellitus with hyperglycemia, with long-term current use of insulin ([facility]) documented in this encounter Results * (ABNORMAL) POCT HGB A1C (07/13/2024 10:57 AM EDT) Hemoglobin A1C 9.7(A) 4.0 - 6.0 % QC Media Lot # [id number] Lot# Expiration Date ,267 Blood 07/13/2024 10:5 7 AM EDT Yvette Hahn MD POINT OF CARE TEST ENTER/EDIT ORDERABLES Final Result * (ABNORMAL) POCT Glucose (07/13/2024 10:56 AM EDT) Glucose Blood, POC 286(A) 60 - 200 mg/dL Comment:Random QC Media Lot # [id number] Lot# Expiration Date [id number] Blood Capillary blood specimen / Unknown 07/13/2024 10:56 AM EDT Yvette Hahn MD POINT OF CARE TEST ENTER/EDIT ORDERABLES Final Result documented in this encounter Visit Diagnoses Diagnosis Type 2 diabetes mellitus with hyperglycemia, with long-term current use of insulin ([facility]) Encounter for immunization documented in this encounter Additional Health Concerns Assessment Noted Time PHQ-9 Depression Total Score: 0 07/14/19 25 10:54 AM EDT documented as of this encounter Care Teams Quiller Machine Fixer Relationship Specialty Start Date End Date Yvette Hahn MD [address] [place] [address] PCP - General Family Medicine 04/15/20 documented as of this encounter
--- OUTSIDE RECORDS SUMMARY | 2024-07-13 13:14 | XMS_ITS | Encounter Summary ---
Author Organization [employer] Address [address] [facility] [address] 7[address] [place] [address] Care Team Providers Care Perfume Compounder Name Role Phone Yvette Hahn MD Primary Care Provider [phone] Reason for Visit * Reason Comments Med Refill Encounter Details Date Type Department Care Team ([facility] st Contact Info) Description 07/13/2024 Refill [facility] [address] [place], [place] [phone] Yvette Hahn MD [address] [place], [place] [phone] Social History Tobacco Use Types Packs/Day Years [...] documented as of this encounter Care Teams Perfume Compounder Relationship Specialty Start Date End Date Yvette Hahn MD [address] [place] [address] PCP - General Family Medicine 04/15/20 documented as of this encounter
--- OUTSIDE RECORDS SUMMARY | 2024-07-13 13:14 | XMS_ITS | Encounter Summary ---
Author Organization [employer] Address [address] [facility] [address] [place] [address] Care Team Providers Care Manufacturer'S Service Representative Name Role Phone Yvette Hahn MD Primary Care Provider [phone] Reason for Referral * Consultation (Routine) - Pending Review Specialty Diagnoses / Procedures Referred By Contac t Referred To Contact Pharmacy Diagnoses Primary hypertension Yvette Hahn MD [address] [place] [address] Phone: tel: fax: Referral ID Status Reason Start Date Expiration Date Visits Requested Visits Authorized [id number] Pending Review Consult and Treat 08/01/2023 07/31/2024 1 1 Encounter Details Date Type Department Care Team ([facility] st Contact Info) Description 08/01/2023 Orders Only [facility] [address] [place], [place] [phone] Yvette Hahn MD [address] [place], [place] [phone] Primary hypertension (Primary Dx) Social History Tobacco [...] your housing situation today? I have jozef sing 07/08/[address] you li [...] as of this encounter Plan of Treatment Scheduled Referrals Name Type Priority Associated Diagnoses Orde r Schedule Referral to Pharmacy CDTM Outpatient Referral Routine Primary hypertension Ordered: 08/01/2023 documented as of this encounter Visit Diagnoses Diagnosis Primary hypertension- Primary Unspecified essential hypertension documented in this encounter Additional Health Concerns Assessment Noted Time PHQ-9 Depression Total Score: 0 07/08/19 24 10:39 AM EST documented as of this encounter Care Teams Manufacturer'S Service Representative Relationship Specialty Start Date End Date Yvette Hahn MD [address] [place] [address] PCP - General Family Medicine 04/15/20 documented as of this encounter
--- OUTSIDE RECORDS SUMMARY | 2024-07-13 13:15 | XMS_ITS | Clinical Summary ---
Author Organization [employer] Address [address] [facility] 7t [place] [address] Care Team Providers Care Tower Truck Driver Name Role Phone Yvette Hahn MD Primary Care Provider [phone] Allergies No known active allergies Medications Diclofenac Sodium 1 % gel APPLY TO THE AFFECTED AREA(S) 2 GRAMS TOPICALLY TWICE DAILY NEEDED FOR PAIN 03/11/20 22 Active triamcinolone (Kenalog) 0.1 % creamIndication s:Poison reji dermatitis Apply topically if needed in the morning and at bedtime for rash. Avoid face and genitals 30 g 2 06/06/19 24 Active carvedilol (Coreg) 6.25 MG tabletIndicatio ns:Primary hypertension Take 1 tablet (6.25 mg) by mouth with breakfast and with evening meal. 180 tablet 3 01/09/20 24 Active cholecalciferol (D3 Super Strength) 50 MCG (2000 UT) capsuleIndicati ons:Vitamin D deficiency Take 1 capsule (50 mcg) by mouth in the morning. 90 capsule 3 01/09/20 24 Active insulin glargine (Lantus SoloStar) 100 UNIT/ML penIndications: Type 2 diabetes mellitus with hyperglycemia, with long-term current use of insulin ([facility]) Inject 40 Units under the skin at bedtime. 15 mL 8 01/09/20 24 025 Active lisinopril 10 MG tabletIndicatio ns:Essential hypertension Take 1 tablet (10 mg) by mouth in the morning. 90 tablet 3 01/09/20 24 Active clopidogrel (Plavix) 75 MG tabletIndicatio ns:Acute ST elevation myocardial infarction (STEMI), unspecified artery (CMS/HCC) Take 1 tablet (75 mg) by mouth in the morning. 90 tablet 3 01/09/20 24 Active atorvastatin (Lipitor) 80 MG tabletIndicatio ns:Type 2 diabetes mellitus with hyperglycemia, with long-term current use of insulin (CMS/HCC) Take 1 tablet (80 mg) by mouth at bedtime. 90 tablet 3 01/09/20 24 Active aspirin (Aspirin Adult Low Strength) 81 MG EC tabletIndicatio ns:Type 2 diabetes mellitus with hyperglycemia, with long-term current use of insulin (CMS/[facility]) Take 1 tablet (81 mg) by mouth at bedtime. 90 tablet 3 01/09/20 24 Active Skin Protectants, Misc. (Minerin Creme) cream APPLY TOPICALLY TO SKIN NEEDED FOR DRY SKIN 454 g 1 02/01/20 24 Active glucose blood (FREESTYLE LITE) test stripIndication s:Type 2 diabetes mellitus with hyperglycemia, with long-term current use of insulin ([facility]) USE TO TEST BLOOD SUGAR THREE TIMES DAILY 100 strip 5 07/05/19 25 Active Dulaglutide (Trulicity) 1.5 MG/0.5ML solution auto-injector Inject 1.5 mg under the skin 1 (one) time per week. 2 mL 3 07/14/19 25 Active metFORMIN, OSM, (Fortamet) 1000 MG 24 hr tablet Take 1 tablet (1,000 mg) by mouth with evening meal. Do not crush, chew, or split. 90 tablet 3 07/14/19 25 026 Active dapagliflozin (Farxiga) 10 MGIndications:T ype 2 diabetes mellitus with hyperglycemia, with long-term current use of insulin ([facility]) Take 1 tablet (10 mg) by mouth in the morning. 90 tablet 3 07/14/19 25 Active Continuous Glucose Sensor (FreeStyle Rg 3 Plus Sensor) miscIndications :Type 2 diabetes mellitus with hyperglycemia, with long-term current use of insulin (CMS/HCC) 1 each every 15 days. Apply 1 every 15 days as directed for CGM 2 each 07/14/19 25 Active Continuous Glucose Special Investigation Unit Investigator (FreeStyle Rg 3 [place]) deviceIndicatio ns:Type 2 diabetes mellitus with hyperglycemia, with long-term current use of insulin (CMS/[facility]) 1 each Once per day. Use as directed for CGM 1 each 07/14/19 25 Active glucose blood (FreeStyle Precision Elia Test) test strip Use to test blood sugar 2 times daily in case of CGM failure or extremes of BG 100 each 07/14/19 25 026 Active Blood Glucose Monitoring Suppl (FreeStyle Lite) w/Device kit 1 each 2 times daily. 1 kit 07/14/19 25 Active TRUEplus Lancets 33G miscIndications :Type 2 diabetes mellitus with hyperglycemia, with long-term current use of insulin (CMS/HCC) Apply 1 each topically 2 times daily. 100 each 07/14/19 25 Active insulin pen needle (UltiCare Mini Pen [place]) 31G x 6 mm misc Use as instructed 100 each 07/14/19 25 Active Alcohol Swabs (Alcohol Prep) 70 % pads Apply 1 each topically 2 times daily. 100 each 07/14/19 25 Active UltiCare Mini Pen [place] 31G X 6 MM misc USE DIRECTED WITH LANTUS EVERY EVENING 100 each 05/20/19 24 025 Discontinued(R eorder (will not trigger notification to Pharmacy)) dulaglutide (Trulicity) 0.75 MG/0.5ML solution pen-injectorInd ications:Type 2 diabetes mellitus with hyperglycemia, with long-term current use of insulin (CMS/HCC) Inject 0.75 mg under the skin 1 (one) time per week. 2 mL 01/09/20 24 025 Discontinued(D ose adjustment) dapagliflozin (Farxiga) 10 MGIndications:T ype 2 diabetes mellitus with hyperglycemia, with long-term current use of insulin (CMS/HCC) Take 1 tablet (10 mg) by mouth in the morning. 90 tablet 3 01/09/20 24 025 Discontinued(R eorder (will not trigger notification to Pharmacy)) TRUEplus Lancets 33G miscIndications :Type 2 diabetes mellitus with hyperglycemia, with long-term current use of insulin (CMS/HCC) USE TO TEST BLOOD SUGAR THREE TIMES DAILY 100 each 11 03/20/20 24 025 Discontinued(R eorder (will not trigger notification to Pharmacy)) Alcohol Swabs (Alcohol Prep) 70 % pads USE DIRECTED FOUR TIMES DAILY 100 each 04/06/20 24 025 Discontinued(R eorder (will not trigger notification to Pharmacy)) glucose blood (FREESTYLE LITE) test strip USE DIRECTED TO TEST BLOOD SUGAR THREE TIMES DAILY 100 strip 1 04/18/20 24 025 Discontinued glipiZIDE-metFO RMIN (Metaglip) 2.5-500 MG tabletIndicatio ns:Type 2 diabetes mellitus with hyperglycemia, with long-term current use of insulin ([facility]) TAKE 2 TABLETS BY MOUTH TWICE DAILY IN THE MORNING AND EVENING BEFORE MEALS 120 tablet 3 06/06/19 25 025 Discontinued(T herapy completed) Active Problems Problem Noted Date Diagnosed Date [...] Encounters Date Type Department Care Team Description 07/13/2024 10:30 AM EDT Office Visit [facility] [address] [place] [address] Yvette Hahn MD Type 2 diabetes mellitus with hyperglycemia, with long-term current use of insulin ([facility]); Encounter for immunization 07/13/2024 Travel 07/13/2024 Refill [facility] [address] [place] [address] Yvette Hahn MD 07/06/2024 Patient Outreach [facility] [address] [place] [address] Yvette Hahn MD Pre-visit Planning (SDOH screening negative and tobacco screening negative) 07/04/2024 Refill [facility] [address] [place] [address] Slime Posada MD Type 2 diabetes mellitus with hyperglycemia, with long-term current use of insulin ([facility]) 06/06/2024 Refill [facility] [address] [place] [address] Yvette Hahn MD Type 2 diabetes mellitus with hyperglycemia, with long-term current use of insulin ([facility]) 05/23/2024 Orders Only [facility] External Provider, [facility] 04/14/2024 Refill [facility] [address] [place] [address] Ranjana Calzada NP from Last 3 Months Immunizations Name Administration Dates Next Due Hep A, Adult 03/22/2022,04/07/2012 Hep B, adult 03/22/2022,05/29/2012,04/07/2012 Influenza injectable quadriv alent IIV4 with preservative 03/21/2019,03/07/2018,01/17/2017 Influenza injectable quadriv alent preservative free 03/22/2022,03/31/2021 Influenza, IIV3, injectable 01/29/2014, 2 Influenza, seasonal, injecta ble, preservative free 07/13/2024,02/15/2012 Pfizer Covid-19 Vaccine 12+ 07/08/2023 Pneumococcal Conjugate [...] 20 07/13/2024 10:52 AM EDT Oxygen Saturation 98% 07/08/2023 10:37 AM EST Inhaled Oxygen Concentration - - Weight 77.2 kg (170 lb 4 oz) 07/13/2024 10:52 AM EDT Height 175.3 cm (5' 9 ) 07/13/2024 10:52 AM EDT Body Mass Index 25.14 07/13/2024 10:52 AM EDT Plan of Treatment Health Maintenance Due Date Last Done Comments CT Colonography 1955 Colonoscopy 1955 Colorectal Cancer Screening 1955 FIT DNA/Cologuard 1957 FIT 1957 FOBT 1957 Sigmoidoscopy 1957 Diabetes: Foot Exam 1967 RSV Patients and Patients Aged 60 years or older (1 - Risk 60-74 years 1-dose series) 2017 DTaP/Tdap/Td Vaccines (2 - Td or Tdap) 10/11/2023 10/10/2013 COVID-19 Vaccine ( season) 2024 07/08/2023, 08/13/2021, 03/31/2021, Additional history exists Diabetes: Urine Protein Screening 07/07/2024 07/08/2023, 04/19/2022, 07/23/2021, Additional history exists Lipid Panel 07/07/2024 07/08/2023, 04/01, 07/23/2021, Additional history exists Diabetes: Hemoglobin A1C 10/13/2024 025, 07/08/2023, 07/23/2021, Additional history exists Eye Exam 05/13/2025 05/13/2023 Lung Cancer Screening 05/23/2025 05/23/2024, 024 SDOH Screening 07/06/2025 07/06/2024 Alcohol/Substance Use Screening 07/13/2025 07/13/2024 Depression Screening 07/13/2025 07/13/2024, 07/14/19 25 Tobacco Screening 07/13/2025 07/13/2024 Zoster Vaccines Completed 03/03/2020, 12/02, 04/06/2017 Hepatitis C Screening Completed 10/27/2020 Hepatitis A Vaccines Aged Out 03/22/2022, 04/07/20 12 No longer eligible based on patient's age to complete this topic Hepatitis B Vaccines Completed 03/22/2022, 05/29/2012, 04/07/2012 Pneumococcal Vaccine: 50+ Years Completed 03/22/2022, 07/31/2016, 02/15/2012 Influenza Vaccine Completed 07/13/2024, , 03/31/2021, Additional history exists HIB Vaccines Aged Out No longer eligi [...] hyperglycemia, with long-term current use of insulin ([facility]) POCT GLUCOSE Routine 07/13/2024 10:56 AM EDT Type 2 diabetes mellitus with hyperglycemia, with long-term current use of insulin (CMS/HCC) LDCT LUNG SCREENING Routine 05/23/2024 1 2:29 PM EST ALBUMIN, RANDOM URINE W/CREATININE Routine 07/08/2023 11:10 AM EST Type 2 diabetes mellitus with hyperglycemia, without long-term current use of insulin (CMS/HCC) LIPID PANEL, STANDARD Routine 07/08/2023 11:10 AM EST Type 2 diabetes mellitus with hyperglycemia, without long-term current use of insulin (CMS/HCC) ZZZ HISTORICAL HEPATITIS C AB W/REFL TO HCV RNA, QN, PCR Routine 10/27/2020 8:55 AM EDT from Last 3 Months or Most Recently Relevant to Health Maintenance Results * (ABNORMAL) POCT HGB A1C (07/13/2024 10:57 AM EDT) Hemoglobin A1C 9.7(A) 4.0 - 6.0 % QC Media Lot # [id number] Lot# Expiration Date , Blood 07/13/2024 10:5 7 AM EDT Yvette Hahn MD POINT OF CARE TEST ENTER/EDIT ORDERABLES Final Result * (ABNORMAL) POCT Glucose (07/13/2024 10:56 AM EDT) Glucose Blood, POC 286(A) 60 - 200 mg/dL Comment:Random QC Media Lot # [id number] Lot# Expiration Date [id number] Blood Capillary blood specimen / Unknown 07/13/2024 10:56 AM EDT Yvette Hahn MD POINT OF CARE TEST ENTER/EDIT ORDERABLES Final Result * CT Lung Screening Low dose (05/23/2024 12:29 PM EST) Anatomical Region Laterality Modality Lung Computed Tomogra phy 05/23/2024 12:2 9 PM EST Narrative 05/23/2024 12:31 PM EST ? [facility] ?[address] ?[place] [address] ? CT Scan Report ? Signed ? Patient: Hansel,Sebas ?MR#: [id number] ?? [id number] ? : 1955 ?Acct:[id number] ? Age/Sex: 69 / M ?ADM Date: 05/23/24 ? Loc: HO.CT ? Attending Dr: Jeni Wheat PA-C ? Ordering Physician: Jeni Wheat PA-C ?? Date of Service: 05/23/24 ?? Procedure(s): CT lung screening ?? Accession Number(s): [id number] ? cc: Yvette Hahn; Jeni Wheat PA-C ? Report Number: ?? [id number]: Total DLP = ?? 50.00 mGy-cm ? CLINICAL HISTORY: F17.210 - Nicotine dependence, cigarettes, uncomplicated ? CT lung cancer screening (LDCT) ? Comparison: None ? Technique: ?? Axial CT images of the chest using low-dose technique. Referring provider ?? counseled the patient on shared decision-making for LDCT screening. ?? Additional counseling was provided on smoking cessation. ?? Effective radiation dose total: DLP 40 mGycm, CTDIvol 1.3 mGy. ? Findings: ?? Part solid approximate 10 mm nodule medial right lower lobe pulmonary ?? nodule current image 370 series 6 is stable to the multiple prior CTs, ?? including 04/14/2020 CT. ?? No appreciable new or progressive nodule. Stable scarring lingular segment ?? left upper lobe. Few additional subtle fibronodular changes likely on the ?? basis of mild fibrosis. Previously identified small apical lung nodules ?? are less apparent. Mild micronodular change suggesting underlying ?? respiratory bronchiolitis as on priors. ?? Thoracic inlet intact. No thyroid nodule. Stable mediastinal and upper ?? abdomen. Extensive coronary artery calcification. No pathologic appearing ?? adenopathy. ? Impression: ?? Lung rads 2. Benign appearance. ?? Management: Continue annual screening. ? Category 1: Normal; continue annual screening ?? Category 2: Benign appearance or behavior, continue annual screening ?? Category 3: Probably benign, [address] recommended ?? Category 4A: Suspicious, [address] recommended; may consider PET/CT ?? Category 4B: Suspicious, Additional diagnostics and/or tissue sampling ?? recommended ?? Category 4X: Suspicious, Additional diagnostics and/or tissue sampling ?? recommended ?? Category 0: Recalls (incomplete screen due to Incomplete coverage, Noise, ?? Respiratory motion, Expiration, Obscured by acute abnormality) ? This document has been electronically signed by: Alan Hunt MD on ?? 05/23/2024 12:29:58 ? Dictated By: ?Alan Hunt MD ? Signed By: ?<Electronically signed by Alan Hunt MD in OV> ? 05/23/24 1231 ? DD/ 1229 ? TD/TT: 05/23/24 1229 ? Engineer Conductor: ? Procedure Note Eddie, Image - 05/23/[address] [place] [address] [address] Scan Report Signed Patient: Mo Hamm#: [id number] : 1955cct:[id number] Age/Sex: 69 / MADM Date: 05/23/24 Loc: HO.CT Attending Dr: Jeni Wheat PA-C Ordering Physician: Jeni Wheat PA-C Date of Service: 05/23/24 Procedure(s): CT lung screening Accession Number(s): [id number] cc: Yvette Hahn; Jeni Wheat PA-C Report Number: [id number]: Total DLP = 50.00 mGy-cm CLINICAL HISTORY: F17.210 - Nicotine dependence, cigarettes, uncomplicated CT lung cancer screening (LDCT) Comparison: None Technique: Axial CT images of the chest using low-dose technique. Referring provider counseled the patient on shared decision-making for LDCT screening. Additional counseling was provided on smoking cessation. Effective radiation dose total: DLP 40 mGycm, CTDIvol 1.3 mGy. Findings: Part solid approximate 10 mm nodule medial right lower lobe pulmonary nodule current image 370 series 6 is stable to the multiple prior CTs, including 04/14/2020 CT. No appreciable new or progressive nodule. Stable scarring lingular segment left upper lobe. Few additional subtle fibronodular changes likely on the basis of mild fibrosis. Previously identified small apical lung nodules are less apparent. Mild micronodular change suggesting underlying respiratory bronchiolitis as on priors. Thoracic inlet intact. No thyroid nodule. Stable mediastinal and upper abdomen. Extensive coronary artery calcification. No pathologic appearing adenopathy. Impression: Lung rads 2. Benign appearance. Management: Continue annual screening. Category 1: Normal; continue annual screening Category 2: Benign appearance or behavior, continue annual screening Category 3: Probably benign, [address] recommended Category 4A: Suspicious, [address] recommended; may consider PET/CT Category 4B: Suspicious, Additional diagnostics and/or tissue sampling recommended Category 4X: Suspicious, Additional diagnostics and/or tissue sampling recommended Category 0: Recalls (incomplete screen due to Incomplete coverage, Noise, Respiratory motion, Expiration, Obscured by acute abnormality) This document has been electronically signed by: Alan Hunt MD on 05/23/2024 12:29:58 Dictated By: Alan Hunt MD Signed By: <Electronically signed by Alan Hunt MD in OV> 05/23/24 1231 DD/ 1229 TD/TT: 05/23/24 1229 Engineer Conductor: us [facility] External Provider IMG CT PROCEDURES Final Result * (ABNORMAL) Albumin, Random Urine W/Creatinine (07/08/2023 11:10 AM EST) Creatinine, Urine 172.32 mg/dL [facility] Microalbumin Urine 113.0 mg/L [facility] Microalbum Creatinine Ratio Ur 65.5(H) <30 ug/mg cr [facility] Comment:Albumin/Creatinine R atio Reference Ranges: Normal: < 30 ug/mg creatinine Microalbuminuria: 30 - 300 ug/mg creatinineClinical Albuminuria: > 300 ug/mg creatinine Urine (Urine, Random) 07/08/2023 11:10 AM EST 07/08/2023 12:56 PM EST Yvette Hahn MD LAB URINE ORDERABLES Final Res ult Performing Organization Address [facility] Co de Phone Number [facility] [address] [place] [phone] * (ABNORMAL) Lipid Panel, Standard (07/08/2023 11:10 AM EST) Triglycerides 148 <150 mg/dL [facility] Comment:Desirable Triglyceri de: less than 150 mg/dLBorderline High Triglyceride 150-199 mg/dLHigh Triglyceride: 200-499 mg/dLVery High Triglyceride: greater than or equal to 5OO mg/dL Cholesterol 181 <200 mg/dL [facility] Comment:Desirable Cholestero l: less than 200 mg/dLBorderline High Cholesterol: 200-239 mg/dLHigh Cholesterol: greater than 239 mg/dL LDL Cholesterol Calculated 115(H) <100 mg/dL [facility] Comment:Desirable LDL: less than 100 mg/dLNear Optimal/Above Optimal LDL: 110- 129 mg/dLBorderline High LDL: 130-159 mg/dLHigh LDL: 160-189 mg/dLVery High LDL: greater than or equal to 190 mg/dL HDL Cholesterol 37(L) >40 mg/dL [facility] Comment:Desirable HDL: great er than 40 mg/dL Note: This HDL assay may give artificially low results in patients with liver disease. Blood Venous blood specimen / Unknown 07/08/2023 11:10 AM EST 07/08/2023 12:56 PM EST us Yvette Hahn MD LAB BLOOD ORDERABLES Final Res ult Performing Organization Address [facility] Co de Phone Number [facility] [address] [place] [phone] * HEPATITIS C AB W/REFL TO HCV RNA, QN, PCR (10/27/2020 8:55 AM EDT) HEPATITIS C ANTIBODY NON-REACT BARON NON-REACT BARON [facility] INDEX 0.03 <1.00 [facility] Comment: ?? HCV antibody was non-reactive. There is no laboratory ?? evidence of HCV infection. ?? In most cases, no further action is required. However, if recent HCV exposure is suspected, a test for HCV RNA (test code 88480) is suggested. ?? For additional information please refer to http://[employer]/faq/NXA70o0 (This link is being provided for informational/ educational purposes only.) ?? 10/27/2020 8:55 AM EDT us Yvette Hahn MD HISTORICAL/NON ORDERABLE LABS Final Result [facility] [address] from Last 3 Months or Most Recently Relevant to Health Maintenance Insurance [facility] Care Teams Tower Truck Driver Relationship Specialty Start Date End Date Yvette Hahn MD [address] [place] [phone] PCP - General Family Medicine 04/15/20
--- OUTSIDE RECORDS SUMMARY | 2024-07-13 13:15 | XMS_ITS | Encounter Summary ---
Author Organization [employer] Address [address] [facility] [address] [place] [address] Care Team Providers Care General Road Production Manager Name Role Phone Yvette Hahn MD Primary Care Provider Encounter Details Date Type Department Care Team (Late st Contact Info) Description 07/12/2022 Orders Only [facility] [address] [place] [address] Chasity Robins LPN Social History Tobacco Use [...] on filedocumented in this encounter Care Teams General Road Production Manager Relationship Specialty Start Date End Date Yvette Hahn MD [address] [place] [phone] PCP - General Family Medicine 04/15/20 documented as of this encounter
--- OUTSIDE RECORDS SUMMARY | 2024-07-13 13:15 | XMS_ITS | Encounter Summary ---
Author Organization [employer] Address [address] [facility] [address] [address] [place] [address] Care Team Providers Care Trial Paralegal Name Role Phone Yvette Hahn MD Primary Care Provider [phone] Encounter Details Date Type Department Care Team (Late st Contact Info) Description 08/09/2022 Orders Only [facility] [address] [place] [address] Geovanna Villagomez LPN Social History Tobacco Use [...] on file documented as of this encounter Procedures Procedure Name Priority Date/Time Associated Diagnosis Comments XR RIBS 3 VIEWS LEFT W CHEST Routine 09/06/2022 2:37 PM EDT documented in this encounter Results * XR Ribs 3 Views Left w/ Chest (09/06/2022 2:37 PM EDT) Anatomical Region Laterality Modality Radiographic Terra ging 09/06/2022 2:37 PM EDT Narrative 09/06/2022 3:43 PM EDT ?[facility] ?[address] ?[place] [address] ?XRay Report ? Signed ? Patient: Hansel,Sebas ?MR#: [id number] ?? [id number] ? : 1955 ?Acct:[id number] ? Age/Sex: 67 / M ?ADM Date: 05/08/23 ? Loc: HO.HHCX ? Attending Dr: Porter Roberts ? Ordering Physician: Porter Carvajal ?? Date of Service: 09/06/22 ?? Procedure(s): XR ribs LT min 3V w CXR1V ?? Accession Number(s): [id number] ? cc: Porter Carvajal ? EXAMINATION: ?? [...] in OV> ? 09/06/22 1540 ? DD/ 1437 ? TD/TT: ? Retort Unloader: ? Procedure Note Alexia Morgan - 09/20/[address] [address] XRay Report Signed Patient: Sebas HammMR#: [id number] : 7Acct:[id number] Age/Sex: 67 / MADM Date: 09/06/22 Loc: HO.HHCX Attending Dr: Porter Roberts Ordering Physician: Porter Carvajal Date of Service: 09/06/22 Procedure(s): XR ribs LT min 3V w CXR1V Accession Number(s): [id number] cc: Porter Carvajal RODEO CLOWN-Malini EXAMINATION: XR RIBS, LEFT CLINICAL INFORMATION: Posterior [...] in OV> 09/06/22 1540 DD/ 1437 TD/TT: Retort Unloader: [facility] External Provider IMG XR PROCEDURES Final Result documented in this encounter Visit Diagnoses Not on filedocumented in this encounter Care Teams Trial Paralegal Relationship Specialty Start Date End Date Yvette Hahn MD [address] [place] [phone] PCP - General Family Medicine 04/15/20 documented as of this encounter
--- OUTSIDE RECORDS SUMMARY | 2024-07-13 13:15 | XMS_ITS | Encounter Summary ---
Author Organization [employer] Address [address] [facility] [address] [place] [address] Care Team Providers Care Ip Counsel Name Role Phone Yvette Hahn MD Primary Care Provider [phone] Reason for Visit * Reason Comments Med Refill Encounter Details Date Type Department Care Team ([facility] st Contact Info) Description 07/04/2024 Refill [facility] [address] [place], [place] [phone] Slime Posada MD [address] [place], [place] [phone] Type 2 diabetes mellitus with hyperglycemia, with long-term current use of insulin ([facility]) Social History Tobacco Use Types Packs/Day Years [...] as of this encounter Visit Diagnoses Diagnosis Type 2 diabetes mellitus with hyperglycemia, with long-term current use of insulin ([facility]) documented in this encounter Additional Health Concerns Assessment Noted Time PHQ-9 Depression Total Score: 0 07/08/19 24 10:39 AM EST documented as of this encounter Care Teams Ip Counsel Relationship Specialty Start Date End Date Yvette Hahn MD [address] [place] [phone] PCP - General Family Medicine 04/15/20 documented as of this encounter
--- OUTSIDE RECORDS SUMMARY | 2024-07-13 13:15 | XMS_ITS | Encounter Summary ---
Author Organization [employer] Address [address] [facility] [place] [address] Care Team Providers Care Engineering Intern Name Role Phone Yvette Hahn MD Primary Care Provider [phone] Encounter Details Date Type Department Care Team (Late st Contact Info) Description 12/28/2022 Orders Only [facility] MED & PEDS [address] [place] [address] Chasity Robins LPN Social History Tobacco Use [...] on filedocumented in this encounter Care Teams Engineering Intern Relationship Specialty Start Date End Date Yvette Hahn MD [address] [place] [id number] PCP - General Family Medicine 04/15/20 documented as of this encounter
--- OUTSIDE RECORDS SUMMARY | 2024-07-13 13:15 | XMS_ITS | Encounter Summary ---
Author Organization [employer] Address [address] [facility] [address] [place] [address] Care Team Providers Care Home And School Visitor Name Role Phone Yvette Hahn MD Primary Care Provider [phone] Encounter Details Date Type Department Care Team (Late st Contact Info) Description 05/21/2022 Orders Only [facility] CHC MED & PEDS [address] [place] [address] Chasity Robins LPN Social History Tobacco Use [...] on filedocumented in this encounter Care Teams Home And School Visitor Relationship Specialty Start Date End Date Yvette Hahn MD [address] [place] [id number] PCP - General Family Medicine 04/15/20 documented as of this encounter
[2024-07-13 14:09] LABS: Alanine Aminotransferase 29 U/L (0-40); Alkaline Phosphatase 86 U/L (39-117); Anion Gap 12 (12-20); Aspartate Amino Transferase 24 U/L (5-37); Bilirubin Total 0.5 mg/dL (0.0-1.0); Blood Urea Nitrogen 13 mg/dL (9-16); Calcium 9.4 mg/dL (8.4-10.2); Carbon Dioxide 23 mmol/L (22-29); Chloride 105 mmol/L (96-108); Cholesterol 161 mg/dL (<200); Estimated Glomerular Filt Rate > 60; Glucose Random 296 mg/dL (60-115); HDL Cholesterol 38 mg/dL (>40); LDL Cholesterol Calculated 100 mg/dL (<100); Potassium 4.2 mmol/L (3.3-5.1); Sodium 136 mmol/L (135-145); Total Protein 7.3 g/dL (6.5-8.0); Triglycerides 115 mg/dL (<150)
[2024-07-13 14:36] LABS: Creatinine Urine 166.15 mg/dL; Microalbum/Creatinine Ratio Ur 173.9 ug/mg cr (<30)
== END 2024-07-13 11:27 | disposition home or self-care (01) ==
LOC: HO.HHCL 11:26
PROVIDERS: Visit Provider General Practice
DX: E11.65 Type 2 diabetes mellitus with hyperglycemia (principal); Z79.4 Long term (current) use of insulin
CPT/HCPCS: 36415; 80053; 80061; 82043; 82570

== ENCOUNTER 2024-07-31 09:38 | Outpatient (AMB) | payer OTHER, SELFPAY ==
--- NOTE | 2024-07-31 09:42 | A.OFFVIS_ITS ---
Intake Visit Reasons: Left inguinal hernia Intake Note: Patient referred by pcp Dr. Hahn for Lt inguinal hernia. Present for 8m. Patient c/o: bulges out when laying flat, tender when pressed. Coughing makes it worse. Warp Bleaching Vat Tender Required: No Accompanied by: Ximena Hmam sister Allergies No Known Allergies [No Known Allergies*] Allergy (Verified 07/31/24 09:47) Medication List - Last Reconciled 07/31/24 by Sky Rivera MD acetaminophen ER 650 mg PO Q6H PRN alcohol swabs (Alcohol Prep Pads) 0 pad topical QID aspirin 81 mg PO DAILY atorvastatin 80 mg PO DAILY blood sugar diagnostic (FreeStyle Lite Strips) As directed 3 times a day carvedilol 6.25 mg PO BID cholecalciferol (vitamin D3) 50 mcg PO DAILY clopidogrel 75 mg PO QAM dapagliflozin propanediol 10 mg PO QAM diclofenac sodium 1% grams topical BID dulaglutide (Trulicity) mg subcut QWEEK glipizide-metformin 2.5-500 mg 2 tabs PO insulin glargine (Lantus Solostar U-100 Insulin) 40 units subcut QPM lancets As directed lisinopril 10 mg PO QAM pen needle, diabetic (Pen Needle) As directed once a day HPI Comments Details: Patient presents with a significant other. Patient has had a symptomatic left inguinal hernia for roughly 1 year's time. It was increasing in size, become more symptomatic. He would like to have repaired. He otherwise tolerating a diet. Has regular bowel habits. No other GI issues or complaints. Does occasional strenuous activities. Chart was reviewed and patient evaluated [facility] Medical History (Updated 07/27/24 @ 13:53 by BETH Tian) Osteoarthritis of right knee Abnormal chest CT Moderate alcohol dependence Type [address] elevation myocardial infarction (STEMI) Family history of hypoalphalipoproteinemia Hyperlipidemia Nicotine dependence, cigarettes, uncomplicated Dyslipidemia History of substance abuse Vitamin D deficiency Pulmonary nodule Depression Emphysema lung Diabetes mellitus Hypertension CAD (coronary artery disease) Surgical History (Updated 07/31/24 @ 09:49 by Sky Rivera MD) History of heart surgery Family History Mother No problems noted. Father No problems noted. Social History (Updated 04/16/22 @ 11:25 by Jv Rowland [facility]) Household Members: None Alcohol intake: current Patient Tobacco Use Status: Current everyday Tobacco user Tobacco use type: Cigarette Current occupational status: disabled Current occupation: right handed Physical Exam Chest Other: Chest breath sounds bilaterally, HS 1 in 2 GI Other: Patient was examined both supine and standing with Valsalva. Abdomen is soft, benign. Right groin negative. Genitalia within normal limits. Penile wart. Moderately sized left inguinal hernia reducible Assessment & Plan Assessment & Plan (1) Left inguinal hernia: Code(s): K40.90 - Unilateral inguinal hernia, without obstruction or gangrene, not specified as recurrent Category: Surgical Plan Risks, benefits, alternatives of open left inguinal hernia repair with mesh were reviewed with the patient and included but not limited to bleeding, infection, recurrence, numbness, pain, scarring the patient wished to proceed. All questions answered. Arrangements were made for this on a day which is convenient for him. Coding Level of Care Code New Pt Level 5 (09965) Diagnoses Left inguinal hernia K40.90
--- OUTSIDE RECORDS SUMMARY | 2024-07-31 11:00 | XMS_ITS | Encounter Summary ---
Author Organization [employer] Address [address] [facility] [address] [place] [address] Care Team Providers Care Pad Tufter Name Role Phone Yvette Hahn MD Primary Care Provider Encounter Details Date Type Department Care Team (Late st Contact Info) Description 12/28/2022 Orders Only [facility] MED & PEDS [address] [place] [address] Chasity Robins LPN Social History Tobacco Use [...] Care Team (Late st Contact Info) Description 10/12/2024 1:30 PM EDT Office Visit [facility] MEDICINE [address] [place] [address] Yvette Hahn MD [address] [place] [address] documented as of this encounter Visit Diagnoses Not on filedocumented in this encounter Care Teams Pad Tufter Relationship Specialty Start Date End Date Yvette Hahn MD [address] [place] [address] PCP - General Family Medicine 04/15/20 documented as of this encounter
--- OUTSIDE RECORDS SUMMARY | 2024-07-31 11:00 | XMS_ITS | Encounter Summary ---
Author Organization [employer] Address [address] [facility] [address] [place] [address] Care Team Providers Care Hand Rug Cleaner Name Role Phone Yvette Hahn MD Primary Care Provider [phone] Reason for Referral * Consultation (Routine) - Pending Review Specialty Diagnoses / Procedures Referred By Contac t Referred To Contact Pharmacy Diagnoses Primary hypertension Yvette Hahn MD [address] [place] [address] Phone: tel: fax: Referral ID Status Reason Start Date Expiration Date Visits Requested Visits Authorized [id number] Pending Review Consult and Treat 08/01/2023 07/31/2024 1 1 Encounter Details Date Type Department Care Team ([facility] st Contact Info) Description 08/01/2023 Orders Only [facility] MED[facility]INE [address] [place], [place] [phone] Yvette Hahn MD [address] [place], [place] [phone] Primary hypertension (Primary Dx) Social History Tobacco [...] Description 10/12/2024 1:30 PM EDT Office Visit [facility] MEDICINE [address] [place] [place] [phone] Yvette Hahn MD [address] [place] [address] Scheduled Referrals Name Type Priority Associated Diagnoses Orde r Schedule Referral to Pharmacy CDTM Outpatient Referral Routine Primary hypertension Ordered: 08/01/2023 documented as of this encounter Visit Diagnoses Diagnosis Primary hypertension- Primary Unspecified essential hypertension documented in this encounter Additional Health Concerns Assessment Noted Time PHQ-9 Depression Total Score: 0 07/08/19 24 10:39 AM EST documented as of this encounter Care Teams Hand Rug Cleaner Relationship Specialty Start Date End Date Yvette Hahn MD [address] [place] [address] PCP - General Family Medicine 04/15/20 documented as of this encounter
--- OUTSIDE RECORDS SUMMARY | 2024-07-31 11:00 | XMS_ITS | Encounter Summary ---
Author Organization [employer] Address [address] [facility] [address] [place] [address] Care Team Providers Care Checker Bakery Products Name Role Phone Yvette Hahn MD Primary Care Provider [phone] Encounter Details Date Type Department Care Team (Late st Contact Info) Description 07/12/2022 Orders Only [facility] CHC MED & PEDS [address] [place] [address] Chasity Robins LPN Social History Tobacco Use [...] Description 10/12/2024 1:30 PM EDT Office Visit [facility] MEDICINE [address] [place] [address] Yvette Hahn MD [address] [place] [address] documented as of this encounter Visit Diagnoses Not on filedocumented in this encounter Care Teams Checker Bakery Products Relationship Specialty Start Date End Date Yvette Hahn MD [address] [place] [address] PCP - General Family Medicine 04/15/20 documented as of this encounter
--- OUTSIDE RECORDS SUMMARY | 2024-07-31 11:00 | XMS_ITS | Encounter Summary ---
Author Organization [employer] Address [address] [facility] [address] [place] [address] Care Team Providers Care Rail Gang Supervisor Name Role Phone Yvette Hahn MD Primary Care Provider [phone] Reason for Visit * Reason Comments Med Refill Encounter Details Date Type Department Care Team ([facility] st Contact Info) Description 07/13/[address] [facility] MED[facility]INE [address] [place], [place] [phone] Yvette Hahn MD [address] [place], [place] [phone] Social History Tobacco Use Types Packs/Day Years [...] Description 10/12/2024 1:30 PM EDT Office Visit [facility] [address] [place] [phone] Yvette Hahn MD [address] [place] [address] documented as of this encounter Visit Diagnoses Not on filedocumented in this encounter Additional Health Concerns Assessment Noted Time PHQ-9 Depression Total Score: 0 07/14/19 25 10:54 AM EDT documented as of this encounter Care Teams Rail Gang Supervisor Relationship Specialty Start Date End Date Yvette Hahn MD [address] [place] [id number] PCP - General Family Medicine 04/15/20 documented as of this encounter
--- OUTSIDE RECORDS SUMMARY | 2024-07-31 11:00 | XMS_ITS | Clinical Summary ---
Author Organization [employer] Address [address] [facility] 7t [place] [address] Care Team Providers Care Detention Deputy Name Role Phone Yvette Hahn MD Primary Care Provider [phone] Allergies No known active allergies Medications Diclofenac [...] hyperglycemia, with long-term current use of insulin ([facility]) Inject [...] hyperglycemia, with long-term current use of insulin ([facility]) Take [...] 2 each 07/14/19 25 Active Continuous Glucose [employer] (FreeStyle Rg 3 [place]) deviceIndicatio ns:Type 2 diabetes mellitus with hyperglycemia, [...] times daily. 100 each 07/14/19 25 Active Alcohol Swabs (Alcohol Prep) 70 % pads Apply 1 each topically 2 times daily. 100 each 07/14/19 25 Active insulin pen needle (BD Pen Needle Ghislaine U/F) 32G x 4 mm misc USE DAILY DIRECTED 100 each 07/18/19 25 Active UltiCare Mini Pen Converse 31G X 6 MM misc USE DIRECTED WITH LANTUS EVERY EVENING 100 each 05/20/19 24 025 Discontinued(R eorder (will not trigger notification to Pharmacy)) dulaglutide (Trulicity) 0.75 MG/0.5ML solution pen-injectorInd ications:Type 2 diabetes mellitus with hyperglycemia, with long-term current use of insulin ([facility]) Inject 0.75 mg under the skin 1 [...] BLOOD SUGAR THREE TIMES DAILY 100 each 03/20/20 24 025 Discontinued(R eorder (will not trigger notification to Pharmacy)) Alcohol Swabs (Alcohol Prep) 70 % pads USE DIRECTED FOUR TIMES DAILY 100 each 20 24 025 Discontinued(R eorder (will not trigger notification to Pharmacy)) glucose blood (FREESTYLE LITE) test strip USE DIRECTED TO TEST BLOOD SUGAR THREE TIMES DAILY 100 strip 1 04/18/20 24 025 Discontinued glipiZIDE-metFO RMIN (Metaglip) 2.5-500 MG tabletIndicatio ns:Type 2 diabetes mellitus with hyperglycemia, with long-term current use of insulin ([facility]) TAKE 2 TABLETS BY MOUTH TWICE DAILY IN THE MORNING AND EVENING BEFORE MEALS 120 tablet 3 06/06/19 25 025 Discontinued(T herapy completed) insulin pen needle (UltiCare Mini Pen Converse) 31G x 6 mm misc Use as instructed 100 each 5 07/14/19 25 025 Discontinued Active Problems Problem Noted Date Diagnosed Date Lung mass 11/01/2022 Osteoarthritis of right knee 01/11/[address] 10/04/2018 Type 2 diabetes mellitus 12/05/2017 Assessment & Plan (07/18/2024 1:16 PM EDT): Current A1c: 9.7 BMP: Lab Results Component Value Date CREATININE 0.79 07/13/2024 EGFR >60 07/13/2024 Microalbumin: 179 (elevated) Foot Exam: Complete at follow up Eye Exam: no ocular complications of DM2 Lipid panel: Lab Results Component Value Date TRIG 115 07/13/2024 TRIG 148 07/08/2023 CHOL 161 07/13/2024 CHOL 181 07/08/2023 LDLCHOLCAL 100 (H) 07/13/2024 LDLCHOLCAL 115 (H) 07/08/2023 HDL 38 (L) 07/13/2024 HDL 37 (L) 07/08/2023 ASCVD: history of ID Statin: Yes ASA: Yes JHONNY/ARB: Yes Encouraged regular aerobic exercise for improved glycemic control Encouraged daily foot checks Encouraged lean protein snacks and to avoid foods high in sugar and simple carbohydrates Treatment Goals: A1c goal: <7% FBG goal: <130 2 hour post prandial goal: <180 Assessment & Plan (01/09/2024 12:35 PM EDT): [...] 03/16/2012 Essential hypertension 03/09/2012 Assessment & Plan (07/18/2024 1:17 PM EDT): Maintenance: Lisinopril 10mg, Coreg 6.25mg Spoke about risk of untreated HTN on reoccurrence of ID or stroke EKG: normal sinus rhythm 08/22 cardiology - [...] prescriptions without first consulting health care provider Assessment & Plan (07/08/2023 11:11 AM EST): [...] first consulting health care provider Smoker 03/09/2012 History of substance abuse 03/09/2012 Resolved Problems Problem Noted Date Diagnosed Date Resolved Date Overweight (BMI 25.0-29.9) 03/09/2012 0 07/18/2024 Encounters Date Type Department Care Team Description 07/19/2024 Telephone [facility] [address] [place] [address] Rylee Guajardo, DANELLE CGM PA 07/17/2024 Refill [facility] [address] [place] [address] Yvette Hahn MD 07/13/2024 10:30 AM EDT Office Visit [facility] [address] [place] [address] Yvette Hahn MD Essential hypertension (Primary Dx); Type 2 diabetes mellitus with hyperglycemia, with long-term current use of insulin (CMS/HCC); Encounter for immunization; Dietary counseling; Exercise counseling; History of substance abuse (CMS/HCC); Moderate alcohol dependence (CMS/HCC); Lung mass; History of ST elevation myocardial infarction (STEMI); Other hyperlipidemia; Smoker; Left inguinal hernia 07/13/2024 Travel 07/13/2024 Refill [facility] [address] [place] [address] Yvette Hahn MD 07/06/2024 Patient Outreach [facility] [address] [place] [address] Yvette Hahn MD Pre-visit Planning (SDOH screening negative and tobacco screening negative) 07/04/2024 Refill [facility] [address] [place] [address] Slime Posada MD Type 2 diabetes mellitus with hyperglycemia, with long-term current use of insulin (CMS/HCC) 06/06/2024 Refill [facility] [address] [place] [address] Yvette Hahn MD Type 2 diabetes mellitus with hyperglycemia, with long-term current use of insulin ([facility]) 05/23/2024 Orders Only [facility] External Provider, [facility] from Last 3 Months Immunizations Name Administration [...] 07/13/2024 10:52 AM EDT Plan of Treatment Upcoming Encounters Date Type Department Care Team (Late st Contact Info) Description 10/12/2024 1:30 PM EDT Office Visit [facility] [address] [place] [address] Yvette Hahn MD [address] [place] [address] Health Maintenance Due Date Last Done Comments CT Colonography 1955 FIT DNA/Cologuard 1955 FIT 1955 FOBT 1955 Sigmoidoscopy 1955 Diabetes: Foot Exam 1967 RSV Patients and Patients Aged 60 years or older (1 - Risk 60-74 years 1-dose series) 2017 DTaP/Tdap/Td Vaccines (2 - Td or Tdap) 10/11/2023 10/10/2013 COVID-19 Vaccine ( season) 2024 07/08/2023, 08/13/2021, 03/31/2021, Additional history exists Diabetes: Hemoglobin A1C 10/13/2024 025, 07/08/2023, 07/23/2021, Additional history exists Eye Exam 05/13/2025 05/13/2023 Lung Cancer Screening 05/23/2025 05/23/2024, 024 SDOH Screening 07/06/2025 07/06/2024 Alcohol/Substance Use Screening 07/13/2025 07/13/2024 Depression Screening 07/13/2025 07/13/2024, 07/14/19 25 Diabetes: Urine Protein Screening 07/13/2025 07/13/2024, 07/08/2023, 04/19/2022, Additional history exists Lipid Panel 07/13/2025 07/13/2024, 03/0 12/2023, 04/19/2022, Additional history exists Tobacco Screening 07/13/2025 07/13/2024 Colonoscopy 05/02/2029 Colorectal Cancer Screening 05/02/2029 Zoster Vaccines Completed 03/03/2020, 12/02, 04/06/2017 Hepatitis [...] Procedure Name Priority Date/Time Associated Diagnosis Comments COMPREHENSIVE METABOLIC PANEL Routine 07/13/2024 11:29 AM EDT Type 2 diabetes mellitus with hyperglycemia, with long-term current use of insulin ([facility]) ALBUMIN, RANDOM URINE W/CREATININE Routine 07/13/2024 11:29 AM EDT Type 2 diabetes mellitus with hyperglycemia, with long-term current use of insulin ([facility]) LIPID PANEL, STANDARD Routine 07/13/2024 11:29 AM EDT Type 2 diabetes mellitus with hyperglycemia, with long-term current use of insulin ([facility]) POCT GLYCATED HEMOGLOBIN, TOTAL Routine 07/13/2024 10:57 AM EDT Type 2 diabetes mellitus with hyperglycemia, with long-term current use of insulin ([facility]) POCT GLUCOSE Routine 07/13/2024 10:56 AM EDT Type 2 diabetes mellitus with hyperglycemia, with long-term current use of insulin ([facility]) LDCT LUNG SCREENING Routine 05/23/2024 1 2:29 PM EST ZZZ HISTORICAL HEPATITIS C AB W/REFL TO HCV RNA, QN, PCR Routine 10/27/2020 8:55 AM EDT from Last 3 Months or Most Recently Relevant to Health Maintenance Results * (ABNORMAL) Albumin, Random Urine W/Creatinine (07/13/2024 11:29 AM EDT) Creatinine, Urine 166.15 mg/dL [facility] Microalbumin Urine 289.0 mg/L H [facility] Microalbum Creatinine Ratio Ur 173.9(H) <30 ug/mg cr [facility] Comment:Albumin/Creatinine R atio Reference Ranges: Normal: < 30 ug/mg creatinine Microalbuminuria: 30 - 300 ug/mg creatinineClinical Albuminuria: > 300 ug/mg creatinine Urine (Urine, Random) 07/13/2024 11:29 AM EDT 07/13/2024 1:32 PM EDT us Yvette Hahn MD LAB URINE ORDERABLES Final Res ult Performing Organization Address [facility] de Phone Number [facility] [address] [place] [phone] * (ABNORMAL) Lipid Panel, Standard (07/13/2024 11:29 AM EDT) Triglycerides 115 <150 mg/dL [facility] Comment:Desirable Triglyceri de: less than 150 mg/dLBorderline High Triglyceride 150-199 mg/dLHigh Triglyceride: 200-499 mg/dLVery High Triglyceride: greater than or equal to 5OO mg/dL Cholesterol 161 <200 mg/dL [facility] Comment:Desirable Cholestero l: less than 200 mg/dLBorderline High Cholesterol: 200-239 mg/dLHigh Cholesterol: greater than 239 mg/dL LDL Cholesterol Calculated 100(H) <100 mg/dL [facility] Comment:Desirable LDL: less than 100 mg/dLNear Optimal/Above Optimal LDL: 110- 129 mg/dLBorderline High LDL: 130-159 mg/dLHigh LDL: 160-189 mg/dLVery High LDL: greater than or equal to 190 mg/dL HDL Cholesterol 38(L) >40 mg/dL [facility] Comment:Desirable HDL: great er than 40 mg/dL Note: This HDL assay may give artificially low results in patients with liver disease. Blood Venous blood specimen / Unknown 07/13/2024 11:29 AM EDT 07/13/2024 1:32 PM EDT us Yvette Hahn MD LAB BLOOD ORDERABLES Final Res ult Performing Organization Address [facility] Co de Phone Number [facility] [address] [place] [phone] * (ABNORMAL) Comprehensive Metabolic Panel (07/13/2024 11:29 AM EDT) Pathologist [facility] Sodium 136 135 - 145 mmol/L [facility] Potassium 4.2 3.3 - 5.1 mmol/L [facility] Chloride 105 96 - 108 mmol/L [facility] Carbon Dioxide 23 22 - 29 mmol/L [facility] Anion Gap 12 12 - 20 [facility] Urea Nitrogen (BUN) 13 9 - 16 mg/dL [facility] Creatinine, Serum 0.79 0.5 - 1.4 mg/dL [facility] Estimated Glomerular Filt Rate >60 [facility] Comment:Chronic Kidney Disea se: Estimated GFR < 60 mL/min/1.35e5Ajcphi Kidney Disease: Estimated GFR < 15 mL/min/1.73m2 Glucose 296(H) 60 - 115 mg/dL [facility] Calcium 9.4 8.4 - 10.2 mg/dL [facility] Bilirubin, Total 0.5 0.0 - 1.0 mg/dL [facility] Aspartate Amino Transferase 24 5 - 37 U/L [facility] Alanine Aminotransferase 29 0 - 40 U/L [facility] Total Protein 7.3 6.5 - 8.0 g/dL [facility] Albumin Level 4.0 3.5 - 5.0 g/dL [facility] Alkaline Phosphatase 86 39 - 117 U/L [facility] Blood Venous blood specimen / Unknown 07/13/2024 11:29 AM EDT 07/13/2024 1:32 PM EDT us Yvette Hahn MD LAB BLOOD ORDERABLES Final Res ult [facility] [address] [place] [phone] * (ABNORMAL) POCT HGB A1C (07/13/2024 10:57 AM EDT) Pathologist [facility] Hemoglobin A1C 9.7(A) 4.0 - 6.0 % QC Media Lot # [id number] Lot# Expiration Date [id number] Blood 07/13/2024 10:5 7 AM EDT Yvette Hahn MD POINT OF CARE TEST ENTER/EDIT ORDERABLES Final Result * (ABNORMAL) POCT Glucose (07/13/2024 10:56 AM EDT) [facility] Glucose Blood, POC 286(A) 60 - 200 mg/dL Comment:Random QC Media Lot # [id number] Lot# Expiration Date [id number] Blood Capillary blood specimen / Unknown 07/13/2024 10:56 AM EDT Yvette Hahn MD POINT OF CARE TEST ENTER/EDIT ORDERABLES Final Result * CT Lung Screening Low dose (05/23/2024 12:29 PM EST) Anatomical Region Laterality Modality Lung Computed Tomogra phy 05/23/2024 12:2 9 PM EST Narrative 05/23/2024 12:31 PM EST ? [facility] ?[address] ?[place] [address] ? [place] Scan Report ? Signed ? Patient: Hansel,Sebas ?MR#: [id number] ?? [id number] ? : 1955 ?Acct:[id number] ? Age/Sex: 69 / M ?ADM Date: 05/23/24 ? Loc: HO.CT ? Attending : Jeni Wheat PA-C ? Ordering Physician: Jeni Wheat PA-C ?? Date of Service: 05/23/24 ?? Procedure(s): CT lung screening ?? Accession Number(s): [id number] ? cc: Yvette Hahn; Jeni Wheat PA-C ? Report Number: ?? [id number]: Total DLP = ?? 50.00 mGy-cm ? [...] document has been electronically signed by: Alan Hnut MD on ?? 05/23/2024 12:29:58 ? Dictated By: ?Alan Hunt MD ? Signed By: ?<Electronically signed by Alan Hunt MD in OV> ? 05/23/24 1231 ? DD/ 1229 ? TD/TT: 05/23/24 1229 ? Dairy Farm Supervisor: ? Procedure Note Donotuseinterpreter, Image - 05/23/[address] [address] [address] Scan Report Signed Patient: Mo Hamm#: [id number] : 7Acct:[id number] Age/Sex: 69 / MADM Date: 05/23/24 Loc: HO.CT Attending Dr: Jeni Wheat PA-C Ordering Physician: Jeni Wheat PA-C Date of Service: 05/23/24 Procedure(s): CT lung screening Accession Number(s): [id number] cc: vYette Hahn; Jeni Wheat PA-C Report Number: [id number]: Total DLP = 50.00 mGy-cm CLINICAL HISTORY: [...] 05/23/24 1231 DD/ 1229 TD/TT: 05/23/24 1229 Dairy Farm Supervisor: [facility] External Provider IMG CT PROCEDURES Final Result * HEPATITIS C AB W/REFL TO HCV RNA, QN, PCR (10/27/2020 8:55 AM EDT) HEPATITIS C ANTIBODY NON-REACT BARON NON-REACT BARON [facility] INDEX 0.03 <1.00 [facility] Comment: ?? HCV antibody was non-reactive. There is no laboratory ?? evidence of HCV infection. ?? In most cases, no further action is required. However, if recent HCV exposure is suspected, a test for HCV RNA (test code 87169) is suggested. ?? For additional information please refer to http://education.[employer]/faq/BYT56n0 (This link is being provided for informational/ educational purposes only.) ?? 10/27/2020 8:55 AM EDT Yvette Hahn MD HISTORICAL/NON ORDERABLE LABS Final Result [facility] [address] from Last 3 Months or Most Recently Relevant to Health Maintenance Insurance [facility] Care Teams Detention Deputy Relationship Specialty Start Date End Date Yvette Hahn MD [address] [place] [phone] PCP - General Family Medicine 04/15/20
--- OUTSIDE RECORDS SUMMARY | 2024-07-31 11:00 | XMS_ITS | Encounter Summary ---
Author Organization [email or web address] [facility] Address [address] [facility] 7t [place] [address] Care Team Providers Care Php Magento Developer Name Role Phone Yvette Hahn MD Primary Care Provider [phone] Encounter Details Date Type Department Care Team (Late st Contact Info) Description 08/09/2022 Orders Only [facility] [address] [place] [phone] Geovanna Villagomez LPN Social History Tobacco Use [...] Description 10/12/2024 1:30 PM EDT Office Visit [facility] [address] [place] [phone] Yvette Hahn MD [address] [place] [phone] documented as of this encounter Procedures Procedure Name Priority Date/Time Associated Diagnosis Comments XR RIBS 3 VIEWS LEFT W CHEST Routine 09/06/2022 2:37 PM EDT documented in this encounter Results * XR Ribs 3 Views Left w/ Chest (09/06/2022 2:37 PM EDT) Anatomical Region Laterality Modality Radiographic Terra ging 09/06/2022 2:37 PM EDT Narrative 09/06/2022 3:43 PM EDT ?[facility] ?[address] ?[place] [address] ?XRay Report ? Signed ? Patient: Hansel,Sebas ?MR#: [id number] ?? [id number] ? : 1955 ?Acct:[id number] ? Age/Sex: 67 / M ?ADM Date: 09/06/22 ? Loc: HO.HHCX ? Attending Dr: Porter Roberts ? Ordering Physician: Porter Carvajal ?? Date of Service: 09/06/22 ?? Procedure(s): XR ribs LT min 3V w CXR1V ?? Accession Number(s): [id number] ? cc: Porter Carvajal ? EXAMINATION: ?? [...] 1540 ? DD/ 36 ? TD/TT: ? Gastroenterology Professor: ? Procedure Note Alexia Morgan - 09/20/[address] [address] XRay Report Signed Patient: Sebas Hamm#: [id number] : 7Acct:[id number] Age/Sex: 67 / MADM Date: 09/06/22 Loc: HO.HHCX Attending Dr: Porter Roberts Ordering Physician: Porter Carvajal Date of Service: 09/06/22 Procedure(s): XR ribs LT min 3V w CXR1V Accession Number(s): [id number] cc: Porter Carvajal EXAMINATION: XR RIBS, LEFT [...] in OV> 09/06/22 1540 DD/ 1437 TD/TT: Gastroenterology Professor: [facility] External Provider IMG XR PROCEDURES Final Result documented in this encounter Visit Diagnoses Not on filedocumented in this encounter Care Teams Php Magento Developer Relationship Specialty Start Date End Date Yvette Hahn MD [address] [place] [phone] PCP - General Family Medicine 04/15/20 documented as of this encounter
--- OUTSIDE RECORDS SUMMARY | 2024-07-31 11:00 | XMS_ITS | Encounter Summary ---
Author Organization [facility] Address [address] [facility] 7t [place] [address] Care Team Providers Care Attendance Clerk Name Role Phone Yvette Hahn MD Primary Care Provider [phone] Encounter Details Date Type Department Care Team (Late st Contact Info) Description 05/21/2022 Orders Only [facility] [address] [place] [address] Chasity Robins LPN Social History Tobacco Use [...] Description 10/12/2024 1:30 PM EDT Office Visit [facility] [address] [place] [address] Yvette Hahn MD [address] [place] [address] documented as of this encounter Visit Diagnoses Not on filedocumented in this encounter Care Teams Attendance Clerk Relationship Specialty Start Date End Date Yvette Hahn MD [address] [place] [address] PCP - General Family Medicine 04/15/20 documented as of this encounter
== END 2024-07-31 09:54 | disposition home or self-care (01) ==
LOC: HO.HGS 09:39
PROVIDERS: PCP General Practice; Visit Provider Surgery
DX: K40.90 Unilateral inguinal hernia, without obstruction or gangrene, not specified as recurrent (principal)
CPT/HCPCS: 99204

== ENCOUNTER → 2024-07-31 09:38 | Outpatient (BNVA) | payer OTHER, SELFPAY | PROVIDERS: PCP General Practice; Visit Provider Surgery | DX: K40.90 Unilateral inguinal hernia, without obstruction or gangrene, not specified as recurrent (principal) | CPT/HCPCS: 99202 ==

== ENCOUNTER 2024-10-08 14:32 | Outpatient (AMB) | payer OTHER, SELFPAY ==
--- NOTE | 2024-10-08 14:38 | A.OFFVIS_ITS ---
Vital Signs 10/08/24 14:46 Height 5 ft 10 in Weight 163 lb BMI 23.4 BP 183/84 H Blood Pressure Location Rt brachial Position Sitting Pulse 73 Intake Visit Reasons: (L) inguinal hernia Intake Note: Patient last seen by Dr. Rivera. Patient would like to be scheduled to have Lt inguinal hernia repaired. Patient c/o: inflamed when lifting or when rubbing against belt. Accompanied by: sisters Lisseth and Ximena Allergies No Known Allergies [No Known Allergies*] Allergy (Verified 07/31/24 09:47) Medication List - Last Reconciled 10/08/24 by Sukumar Miles MD acetaminophen ER 650 mg PO Q6H PRN alcohol swabs (Alcohol Prep Pads) 0 pad topical QID aspirin 81 mg PO DAILY atorvastatin 80 mg PO DAILY blood sugar diagnostic (FreeStyle Lite Strips) As directed 3 times a day carvedilol 6.25 mg PO BID cholecalciferol (vitamin D3) 50 mcg PO DAILY clopidogrel 75 mg PO QAM dapagliflozin propanediol 10 mg PO QAM diclofenac sodium 1% grams topical BID dulaglutide (Trulicity) mg subcut QWEEK glipizide-metformin 2.5-500 mg 2 tabs PO insulin glargine (Lantus Solostar U-100 Insulin) 40 units subcut QPM lancets As directed lisinopril 10 mg PO QAM pen needle, diabetic (Pen Needle) As directed once a day HPI HPI (L) inguinal hernia: Details: 69-year-old male here for follow-up for left inguinal hernia. He had been previously seen by Dr. Rivera for a left inguinal hernia. He has been planned for repair He says he has had this reducible mass in his left groin for over 8 months now. He has been getting uncomfortable. He has coronary artery disease and had a stent placed about 5 years ago. He is on Plavix. He also has diabetes and his A1c is now at 7.0. He admits to being a smoker and has done so for many years. He smokes 1 pack a day. He denies GI complaints. [facility] Medical History Osteoarthritis of right knee Abnormal chest CT Moderate alcohol dependence Type [address] elevation myocardial infarction (STEMI) Family history of hypoalphalipoproteinemia Hyperlipidemia Nicotine dependence, cigarettes, uncomplicated Dyslipidemia History of substance abuse Vitamin D deficiency Pulmonary nodule Depression Emphysema lung Diabetes mellitus Hypertension CAD (coronary artery disease) Surgical History History of heart surgery Family History Mother No problems noted. Father No problems noted. Social History Household Members: None Alcohol intake: current Patient Tobacco Use Status: Current everyday Tobacco user Tobacco use type: Cigarette Current occupational status: disabled Current occupation: right handed Review of Systems Const Denies chills and Denies fever(s) Card Denies chest pain, Denies dyspnea and Denies dyspnea on exertion Resp Denies cough, Denies dyspnea and Denies dyspnea on exertion GI Denies hematochezia and Denies change in bowel habits Denies hematuria and Denies difficulty urinating Musc Denies back pain and Denies limited range of motion Neuro Denies focal weakness and Denies convulsions Psych Denies depression and Denies mood swings Physical Exam Vital Signs: Last Vital Signs Pulse 73 10/08/24 14:46 BP 183/84 H 10/08/24 14:46 BMI result Body Mass Index 23.4 Const General: comfortable and no acute distress Orientation/consciousness: patient oriented x3 Neck Neck: Yes no lymphadenopathy Resp Auscultation: clear to auscultation bilaterally Cardio Rhythm: regular rhythm GI Other: Left inguinal hernia, easily reducible, more obvious with Valsalva Palpation (GI): Soft to palpation, nontender and no guarding Neuro General: patient oriented x3 Assessment & Plan Assessment & Plan (1) Left inguinal hernia: Code(s): K40.90 - Unilateral inguinal hernia, without obstruction or gangrene, not specified as recurrent Category: Surgical Plan: I explained to him the technique of repair of the left inguinal hernia with mesh. I reviewed the risks including but not limited to bleeding, infections, injury to the vas deferens, bowel, recurrence, postop pain, as well as the benefits and alternatives. I reviewed with him what to expect postoperatively. He wants to proceed. I told him that he will need to be cleared by his canteen attendant as he has coronary artery disease with a stent in place. We will have to stop his Plavix and Farxiga. He understands the plan as above. I also explained to him what to expect postoperatively. Coding Level of Care Code Est Pt Level 3 (56547) Diagnoses Left inguinal hernia K40.90
[2024-10-08 14:46] VITALS: BP 183/84; PULSE 73; BMI 23.4
--- OUTSIDE RECORDS SUMMARY | 2024-10-08 16:24 | XMS_ITS | Encounter Summary ---
Author Organization [employer] Address [address] [facility] 7[address] [place] [address] Care Team Providers Care Judicial Assistant Name Role Phone Yvette Hahn MD Primary Care Provider [phone] Reason for Referral * Consultation (Routine) - Closed Specialty Diagnoses / Procedures Referred By Contac t Referred To Contact Pharmacy Diagnoses Primary hypertension Yvette Hahn MD [address] [place] [phone] Phone: tel: fax: Referral ID Status Reason Start Date Expiration Date V isits Requested Visits Authorized [id number] Closed Consult and Treat 08/01/2023 07/31/2024 1 1 Encounter Details Date Type Department Care Team (Late st Contact Info) Description 08/01/2023 Orders Only [facility] [address] [place], [place] [phone] Yvette Hahn MD [address] [place], [place] [phone] Primary hypertension (Primary Dx) Social History Tobacco [...] Description 10/12/2024 1:30 PM EDT Office Visit [facility] [address] [place] [phone] Yvette Hahn MD [address] [place] [phone] Scheduled Referrals Name Type Priority Associated Diagnoses Orde r Schedule Referral to Pharmacy CDTM Outpatient Referral Routine Primary hypertension Ordered: 08/01/2023 documented as of this encounter Visit Diagnoses Diagnosis Primary hypertension- Primary Unspecified essential hypertension documented in this encounter Additional Health Concerns Assessment Noted Time PHQ-9 Depression Total Score: 0 07/08/19 24 10:39 AM EST documented as of this encounter Care Teams Judicial Assistant Relationship Specialty Start Date End Date Yvette Hahn MD [address] [place] [phone] PCP - General Family Medicine 04/15/20 documented as of this encounter
== END 2024-10-08 15:01 | disposition home or self-care (01) ==
LOC: HO.HGS 14:33
PROVIDERS: PCP General Practice; Visit Provider Surgery
DX: K40.90 Unilateral inguinal hernia, without obstruction or gangrene, not specified as recurrent (principal)
CPT/HCPCS: 99213

== ENCOUNTER → 2024-10-08 14:32 | Outpatient (BNVA) | payer OTHER, SELFPAY | PROVIDERS: PCP General Practice; Visit Provider Surgery | DX: K40.90 Unilateral inguinal hernia, without obstruction or gangrene, not specified as recurrent (principal) | CPT/HCPCS: 99212 ==

== ENCOUNTER 2024-11-06 09:04 | Day surgery (SDC) | payer OTHER, SELFPAY ==
--- OUTSIDE RECORDS SUMMARY | 2024-10-31 11:10 | XMS_ITS | Encounter Summary ---
Author Organization [employer] Address [address] [facility] 7 [place] [address] Care Team Providers Care Spanish Lecturer Name Role Phone Yvette Hahn MD Primary Care Provider Reason for Referral * Consultation (Routine) - Closed Specialty Diagnoses / Procedures Referred By Contac t Referred To Contact Pharmacy Diagnoses Primary hypertension Yvette Hahn MD [address] [place] [phone] Phone: tel: fax: Referral ID Status Reason Start Date Expiration Date V isits Requested Visits Authorized [id number] Closed Consult and Treat 08/01/2023 07/31/2024 1 1 Encounter Details Date Type Department Care Team ([facility] st Contact Info) Description 08/01/2023 Orders Only [facility] [address] [place] [address] [phone] Yvette Hahn MD [address] [place] [address] [phone] Primary hypertension (Primary Dx) Social History Tobacco [...] documented as of this encounter Care Teams Spanish Lecturer Relationship Specialty Start Date End Date Yvette Hahn MD [address] [place] [phone] PCP - General Family Medicine 04/15/20 documented as of this encounter
[2024-11-01 12:00] VITALS: BP 138/73; PULSE 78; RESP 16; O2SAT 96; BMI 24.4
--- NOTE | 2024-11-01 12:38 | HO.ANESPROP2 ---
Documented by User: Candace Camara NP 11/05/24 09:05 HPI - Anesthesia Eval Consult details Narrative: 69yo M for Left Hernia Inguinal Reducible, 11/06/24 Cardiac optimized. Follows [facility] for CAD s/p stent No recent illness No CP/SOB with stairs DM: FBS ~100, A1C 06/2024 9.7 ETOH: Binge drinking on weekends - up to 15 drinks. Discussed risk and encouraged decrease preop Hx cocaine Anesthesia Pre-Procedure Meds Is the patient on any of the following meds?: GLP1/DPP4 and SGLT2 Inhib PMFSH Active Problems Active Problems: All Active Problems Left inguinal hernia (Acute) Nicotine dependence, cigarettes, uncomplicated (Acute) Diabetes mellitus (Acute) History of heart surgery (Acute) Emphysema lung (Acute) CAD (coronary artery disease) (Acute) Past Medical History Medical History Snores Back pain Arthritis Osteoarthritis of right knee Abnormal chest CT Moderate alcohol dependence Type [address] elevation myocardial infarction (STEMI) Family history of hypoalphalipoproteinemia Hyperlipidemia Nicotine dependence, cigarettes, uncomplicated Dyslipidemia History of substance abuse Vitamin D deficiency Pulmonary nodule Depression Emphysema lung Diabetes mellitus Hypertension CAD (coronary artery disease) Family History Family History Mother No problems noted. Father No problems noted. Family history of problems with anesthesia: No Surgical History Surgical History Hx of cardiac catheterization History of esophagogastroduodenoscopy (EGD) Hx of colonoscopy Hx of oral surgery History of heart surgery History of Problems with Anesthesia: No Social History Social History Household Members: None Household Members Other:: sister Are you a primary direct care specialist to a significant other at home: No Do you presently have visiting nurse or other home services: No Alcohol intake: current Patient Tobacco Use Status: Current everyday Tobacco user Tobacco use type: Cigarette Cigarette Packs Per Day: 1 Cigarettes Per Day: 20.0 Smoked in Last 30 Days: Yes Second Hand Smoke Exposure: Yes Use of substances other than those prescribed or required for medical reasons: No Substance Use Type: Former Substance User Substance Use Type Other:: last used cocaine ~2014 Have you been hit, kicked, punched, or otherwise hurt by someone within the past year? If so, by whom?: No Are you DNR?: No Advance Directives: No Advance Directives Information Provided: Yes Advance Directives on File: No Poor oral hygiene: No Current occupational status: disabled Current occupation: right handed Meds Allergies Allergy/AdvReac Type Severity Reaction Status Date / Time No Known Allergies (No Known Allergy Verified 07/31/24 09:47 Allergies*) Home Medications ?Medication ?Instructions ?Recorded ?Confirmed ?Last Taken ?Type aspirin 81 mg tablet,delayed 81 mg PO DAILY 05/19/20 11/06/24 10/30/24 History release atorvastatin 80 mg tablet 80 mg PO DAILY 05/19/20 11/01/24 Unknown History carvedilol 6.25 mg tablet 6.25 mg PO BID 05/19/20 11/01/24 Unknown History cholecalciferol (vitamin D3) 50 50 mcg PO DAILY 05/19/20 11/01/24 Unknown History mcg (2,000 unit) capsule clopidogrel 75 mg tablet 75 mg PO QAM 05/19/20 11/01/24 11/02/24 History dapagliflozin propanediol 10 mg 10 mg PO QAM 05/19/20 11/01/24 09/06/24 History tablet lancets 33 gauge #100 ea 05/19/20 10/08/24 Unknown History lisinopril 10 mg tablet 10 mg PO QAM 05/19/20 11/01/24 Unknown History acetaminophen 650 mg 650 mg PO Q6H PRN pain 04/16/22 11/01/24 Unknown History tablet,extended release alcohol swabs (Alcohol Prep Pads) 0 pad topical QID 04/16/22 10/08/24 Unknown History blood sugar diagnostic (FreeStyle #10 ea 04/16/22 10/08/24 Unknown History Lite Strips) diclofenac sodium 1 % topical gel g topical BID 04/16/22 10/08/24 Unknown History dulaglutide 0.75 mg/0.5 mL 0.75 mg subcut QWEEK 04/16/22 11/01/24 10/29/24 History subcutaneous pen injector (Trulicity) pen needle, diabetic 31 gauge x 04/16/22 10/08/24 Unknown History 1/4 (Pen Needle) insulin glargine 100 unit/mL (3 unit subcut 11/01/24 11/01/24 Unknown History mL) subcutaneous pen (Lantus Solostar U-100 Insulin) metformin 500 mg tablet 500 mg PO BID 11/01/24 11/01/24 Unknown History glipizide 11/06/24 Unknown History pioglitazone 11/06/24 11/06/24 Unknown History Exam Height,Weight and Vital Signs: Height 5 ft 7.5 in Weight 71.8 kg Last Vital Signs Pulse 78 11/01/24 12:00 Resp 16 11/01/24 12:00 BP 138/73 11/01/24 12:00 Pulse Ox 96 11/01/24 12:00 O2 Del Method Room Air 11/01/24 12:00 Pertinent Lab Results Pertinent Lab Results: Lab Results 11/01/24 Range/Units 13:04 WBC 7.5 (4.8-10.8) X10*3/uL RBC 5.15 (4.60-5.80) X10*6/uL Hgb 15.8 (14.0-18.0) g/dl Hct 46.4 (42.0-52.0) % MCV 90.1 (80.0-98.0) fL MCH 30.7 (27.0-33.0) pg MCHC 34.1 (31.0-36.0) g/dl RDW 12.1 (11.0-16.0) % Plt Count 147 L (160-400) X10*3/uL MPV 11.2 (9.4-12.4) fL Absolute Nucleated RBC 0.000 (0.0-0.012) X10*3/uL Nucleated RBC % (auto) 0.0 (0.0-0.2) /100WBC PT 12.2 (10.9-12.4) SEC INR 1.1 (0.9-1.1) Estimat Average Glucose 146 mg/dL Hemoglobin A1c % 6.7 H (<6.0) % Narrative Narrative: EKG 09/2024 SB @ 55 RBBB Airway Mallampati Class: II TM Dist: >3cm Neck ROM: Full Denture: Upper and Lower Heart: RRR Lungs: CTAB Assessment and Plan Assessment Anesthesia Assessment: Anesthesia Plan Discussed, Smoking Cess. Discussed and PAT Visit Final Anesthetic Review Family History of Problems with Anesthesia: No History of Problems with Anesthesia: No Documented by User: Emil Costa MD 11/06/24 10:24 HPI - Anesthesia Eval Anesthesia Pre-Procedure Meds If yes to any meds - educate patient: Pt education - increased risk of aspiration and/or euvolemic DKA PMFSH Past Medical History Medical History Snores Back pain Arthritis Osteoarthritis of right knee Abnormal chest CT Moderate alcohol dependence Type [address] elevation myocardial infarction (STEMI) Family history of hypoalphalipoproteinemia Hyperlipidemia Nicotine dependence, cigarettes, uncomplicated Dyslipidemia History of substance abuse Vitamin D deficiency Pulmonary nodule Depression Emphysema lung Diabetes mellitus Hypertension CAD (coronary artery disease) Functional capacity: independent ambulation Family History Family History Mother No problems noted. Father No problems noted. Surgical History Surgical History Hx of cardiac catheterization History of esophagogastroduodenoscopy (EGD) Hx of colonoscopy Hx of oral surgery History of heart surgery Social History Social History Household Members: None Household Members Other:: sister Are you a primary direct care specialist to a significant other at home: No Do you presently have visiting nurse or other home services: No Alcohol intake: current Patient Tobacco Use Status: Current everyday Tobacco user Tobacco use type: Cigarette Cigarette Packs Per Day: 1 Cigarettes Per Day: 20.0 Smoked in Last 30 Days: Yes Second Hand Smoke Exposure: Yes Use of substances other than those prescribed or required for medical reasons: No Substance Use Type: Former Substance User Substance Use Type Other:: last used cocaine ~2014 Have you been hit, kicked, punched, or otherwise hurt by someone within the past year? If so, by whom?: No Are you DNR?: No Advance Directives: No Advance Directives Information Provided: Yes Advance Directives on File: No Poor oral hygiene: No Current occupational status: disabled Current occupation: right handed Meds Allergies Allergy/AdvReac Type Severity Reaction Status Date / Time No Known Allergies (No Known Allergy Verified 07/31/24 09:47 Allergies*) Home Medications ?Medication ?Instructions ?Recorded ?Confirmed ?Last Taken ?Type aspirin 81 mg tablet,delayed 81 mg PO DAILY 05/19/20 11/06/24 10/30/24 History release atorvastatin 80 mg tablet 80 mg PO DAILY 05/19/20 11/01/24 Unknown History carvedilol 6.25 mg tablet 6.25 mg PO BID 05/19/20 11/01/24 Unknown History cholecalciferol (vitamin D3) 50 50 mcg PO DAILY 05/19/20 11/01/24 Unknown History mcg (2,000 unit) capsule clopidogrel 75 mg tablet 75 mg PO QAM 05/19/20 11/01/24 11/02/24 History dapagliflozin propanediol 10 mg 10 mg PO QAM 05/19/20 11/01/24 09/06/24 History tablet lancets 33 gauge #100 ea 05/19/20 10/08/24 Unknown History lisinopril 10 mg tablet 10 mg PO QAM 05/19/20 11/01/24 Unknown History acetaminophen 650 mg 650 mg PO Q6H PRN pain 04/16/22 11/01/24 Unknown History tablet,extended release alcohol swabs (Alcohol Prep Pads) 0 pad topical QID 04/16/22 10/08/24 Unknown History blood sugar diagnostic (FreeStyle #10 ea 04/16/22 10/08/24 Unknown History Lite Strips) diclofenac sodium 1 % topical gel g topical BID 04/16/22 10/08/24 Unknown History dulaglutide 0.75 mg/0.5 mL 0.75 mg subcut QWEEK 04/16/22 11/01/24 10/29/24 History subcutaneous pen injector (Trulicity) pen needle, diabetic 31 gauge x 04/16/22 10/08/24 Unknown History 1/4 (Pen Needle) insulin glargine 100 unit/mL (3 unit subcut 11/01/24 11/01/24 Unknown History mL) subcutaneous pen (Lantus Solostar U-100 Insulin) metformin 500 mg tablet 500 mg PO BID 11/01/24 11/01/24 Unknown History glipizide 11/06/24 Unknown History pioglitazone 11/06/24 11/06/24 Unknown History Exam Exam Date and Time: 11/06/2024 Airway Other: patient is edentulous. oriented, no cognitive issues Assessment and Plan Final Anesthetic Review NPO: Yes ASA Class: I Final Preanesthetic Review: No Changes in Pt Med Stat, Meds/Allgs Chart Reviewed, Consent Obtained/Reviewed and Anes Risks/Benef Reviewed Patient Risk: Intermediate Procedure Risk: Low Anesthetic Plan Anesthetic Plan: GA Disposition: Standard PACU
[2024-11-01 13:31] LABS: INTERNATIONAL NORM RATIO 1.1 (0.9-1.1); Prothrombin Time 12.2 SEC (10.9-12.4)
[2024-11-01 13:32] LABS: Hematocrit 46.4 % (42.0-52.0); Hemoglobin 15.8 g/dl (14.0-18.0); Mean Corpuscular HGB Conc 34.1 g/dl (31.0-36.0); Mean Corpuscular Hemoglobin 30.7 pg (27.0-33.0); Mean Corpuscular Volume 90.1 fL (80.0-98.0); NRBC Abs Auto 0.000 X10*3/uL (0.0-0.012); NRBC Pct Auto 0.0 /100WBC (0.0-0.2); Platelet Count 147 X10*3/uL (160-400); Red Blood Count 5.15 X10*6/uL (4.60-5.80); White Blood Count 7.5 X10*3/uL (4.8-10.8)
[2024-11-01 13:38] LABS: Hemoglobin A1C 198.5961 umol/L; Total Hemoglobin (HGBA1C) 4028.5529 umol/L
[2024-11-06 09:37] VITALS: BMI 24.3
[2024-11-06 09:46] LABS: Cannabinoid Screen Urine Not Detected (Not Detect)
[2024-11-06 09:47] VITALS: BP 165/82; PULSE 67; RESP 16; TEMP 36.8; O2SAT 96
--- NOTE | 2024-11-06 09:53 | MHC.SHP ---
Pre-Procedural Eval Section A - 24 Hr Update-Section A only Date of Service: 11/06/24 The patient is an INPATIENT: No Changes since office visit: No Cold of Flu in the past 2 weeks, No New Medical Problems, No Changes in Medication and No Patient answered all questions The patient has been examined within 24 hours of the surgical procedure. The History & Physical has been completed within 30 days and I have reviewed it.: Yes Section B - Complete if H&P > 30 days Chief Complaint: Unilateral inguinal hernia, without obstruction Details of Present Illness: Has a reducible left inguinal hernia Relevant Family History (Specify if Yes): No Relevant Social History: Tobacco Use Present Medications: see Short Stay Collaborative assessment Medical History: Significant History (Coronary artery disease, diabetes, smoker) Allergies: Allergies Allergy/AdvReac Type Severity Reaction Status Date / Time No Known Allergies (No Known Allergy Verified 07/31/24 09:47 Allergies*) Review of Systems Sugical H&P ROS: Negative: Constitution, Cardiovascular, Respiratory and Gastrointestinal Exam Surgical H&P Exam: Normal: Heart and Normal: Lungs and Significant Findings: Abdomen (Left inguinal hernia) Plan Diagnosis/Plan: Unchanged I have reviewed the history and physical and performed a pertinent physical examination on my patient. No changes have occurred unless specified. Time Spent With Patient Time: Total time managing care of this patient today ____ minutes.
[2024-11-06 09:57] LABS: Glucose, Whole Blood 145 mg/dL (60-115)
--- NOTE | 2024-11-06 10:02 | PC.NURSE ---
called sister with bowling ball mold assembler to verify medications. sister and patient stated that he only takes the farxiga when his blood sugar is at a certain rate. and that he hasnt taken it for months. used as an as needed dose.
--- NOTE | 2024-11-06 10:59 | W.PM.OPN ---
Operative Note Operative Note Date of Service: 11/06/24 Narrative: Preop diagnosis: Left inguinal hernia , reducible Postop diagnosis: Left inguinal hernia, reducible, indirect Procedure: Repair of a left inguinal hernia with mesh Surgeon: Sukumar Miles MD res habilitation assistant: JULIETTE Anderson The patient is a 69-year-old male with a reducible left inguinal hernia. He understood the technique of the planned procedure as well as the risks, benefits, and alternatives. He was brought to the operating room. He was placed supine under general anesthesia via laryngeal mask airway. The left groin was prepped and draped usual sterile fashion. A surgical time-out was done. The patient received cefazolin 2 g IV preop I infiltrated the planned line of incision with lidocaine 1%. I made a short incision on the skin along an imaginary line from the anterior superior iliac spine to the pubic ramus with a blade 15. This carried down through the full-thickness of the skin and subcutaneous fat with electrocautery. The external oblique aponeurosis was exposed. The external ring was identified. I opened up the external ring by making short incision to enter the inguinal canal. Hemostats were applied on the divided edges. The hernia was seen and this seemed to contain only fat. I proceeded to do blunt dissection of the underside of the external oblique aponeurosis to create a pocket for the mesh. I then proceeded to bluntly dissect the cord and its contents with my index finger until was able to pass a Good Thunder drain around this. The Good Thunder drain was used for retraction. I the hernia from the rest of the cord contents. The vas deferens and the accompanying vessels were identified and were protected The hernia was completely from the cord. This appeared to originate from internal ring history with the indirect hernia. I was able to reduce the entire hernia completely through the internal ring. I reinforced this internal ring with a small-sized Prolene plug. The plug was secured with Prolene 2 sutures to the shelving edge of the inguinal meant laterally and the internal oblique superiorly medially using the inner leaves of the mesh. I reinforced the entire floor of the canal with a keyhole mesh. The tails of the mesh were passed around the cord at the level of the internal ring was secured together with Prolene 2 sutures. The mesh was secured to the shelving edge of the inguinal meant laterally, the internal oblique superiorly medially, as well as the pubic ramus inferomedially We irrigated. We moved the Good Thunder drain. We reapposed the external oblique aponeurosis to re-create the external ring, with Prolene 2-0 sutures running fashion. The subcutaneous layer was reapposed with Polysorb 3-0 simple interrupted sutures. Skin closure was achieved with Polysorb 4-0 subcuticular running stitch . The incision was infiltrated with Marcaine 0.5% for postop analgesia. Steri-Strips and dressings were applied. The procedure was completed. The patient tolerated the procedure well. There were no immediate complications. Initial and final counts of sponges and instruments were correct. Estimated blood loss was does than 10 cc. The patient was extubated without difficulty and transferred to the recovery room with stable vital signs.
[2024-11-06 11:27] VITALS: BP 143/70; PULSE 67; RESP 16; TEMP 36.4; O2SAT 97
[2024-11-06 11:30] VITALS: BP 158/77; PULSE 64; RESP 16; O2SAT 97
[2024-11-06 11:35] VITALS: BP 166/84; PULSE 63; RESP 14; O2SAT 96
[2024-11-06 11:40] VITALS: BP 147/84; PULSE 64; RESP 16; O2SAT 94
[2024-11-06 11:55] VITALS: BP 160/74; PULSE 64; RESP 16; TEMP 36.1; O2SAT 96
== END 2024-11-06 12:23 | disposition home or self-care (01) ==
PROVIDERS: Nurse Practitioner; Visit Provider Surgery
PROC: (CPT 49505; principal; 2024-11-06 11:40)
DX: K40.90 Unilateral inguinal hernia, without obstruction or gangrene, not specified as recurrent (principal); I25.10 Atherosclerotic heart disease of native coronary artery without angina pectoris; Z95.5 Presence of coronary angioplasty implant and graft; I25.2 Old myocardial infarction; I10 Essential (primary) hypertension; E11.9 Type 2 diabetes mellitus without complications; E78.5 Hyperlipidemia, unspecified; R91.1 Solitary pulmonary nodule; E55.9 Vitamin D deficiency, unspecified; F32.A Depression, unspecified; F10.20 Alcohol dependence, uncomplicated; F14.11 Cocaine abuse, in remission; R94.31 Abnormal electrocardiogram [ECG] [EKG]; Z79.01 Long term (current) use of anticoagulants; Z79.4 Long term (current) use of insulin; Z79.84 Long term (current) use of oral hypoglycemic drugs; Z79.85 Long-term (current) use of injectable non-insulin antidiabetic drugs; Z79.82 Long term (current) use of aspirin; Z79.899 Other long term (current) drug therapy; F17.210 Nicotine dependence, cigarettes, uncomplicated; Z98.890 Other specified postprocedural states
CPT/HCPCS: 49505; 36415; 80307; 82947; 83036; 85027; 85610; C1781; J0131; J0665; J0690; J2003; J2405; J2704; J3010

== ENCOUNTER → 2024-11-06 09:04 | Outpatient (BNV) | payer OTHER, SELFPAY | PROVIDERS: Visit Provider Surgery | DX: K40.20 Bilateral inguinal hernia, without obstruction or gangrene, not specified as recurrent (principal) | CPT/HCPCS: 49505 ==

== ENCOUNTER 2024-11-19 14:14 | Outpatient (AMB) | payer OTHER, SELFPAY ==
--- NOTE | 2024-11-19 14:18 | A.OFFVIS_ITS ---
Vital Signs 11/19/24 14:25 Weight 168 lb BP 176/78 H Blood Pressure Location Rt brachial Position Sitting Pulse 72 Intake Visit Reasons: S/P LIH w/mesh Intake Note: Patient here s/p repair of a left inguinal hernia with mesh. Patient c/o: reports incision healing well. Steri strips still in place. No longer taking rx pain meds. Surgery: 11-06-2024 Director Of Epidemiology Required: No Accompanied by: sister Ximena Hamm Allergies No Known Allergies (No Known Allergies*) Allergy (Verified 11/19/24 14:24) HPI HPI S/P LIH w/mesh: Details: He underwent repair of a left inguinal hernia with mesh last 11/06/2024. He tolerated procedure well. He currently denies significant complaints although he admits to some pain on the area which has been improving. [facility] Medical History Snores Back pain Arthritis Osteoarthritis of right knee Abnormal chest CT Moderate alcohol dependence Type [address] of [address] elevation myocardial infarction (STEMI) Family history of hypoalphalipoproteinemia Hyperlipidemia Nicotine dependence, cigarettes, uncomplicated Dyslipidemia History of substance abuse Vitamin D deficiency Pulmonary nodule Depression Emphysema lung Diabetes mellitus Hypertension CAD (coronary artery disease) Surgical History History of left inguinal hernia repair (11/06/24) Hx of cardiac catheterization History of esophagogastroduodenoscopy (EGD) Hx of colonoscopy Hx of oral surgery History of heart surgery Family History Mother No problems noted. Father No problems noted. Social History Household Members: None Household Members Other:: sister Are you a primary school child care attendant to a significant other at home: No Do you presently have visiting nurse or other home services: No Alcohol intake: current Patient Tobacco Use Status: Current everyday Tobacco user Tobacco use type: Cigarette Cigarette Packs Per Day: 1 Cigarettes Per Day: 20.0 Second Hand Smoke Exposure: Yes Substance Use Type: Former Substance User Current occupational status: disabled Current occupation: right handed Review of Systems Const Denies chills and Denies fever(s) GI Denies abdominal pain and Denies vomiting Physical Exam Vital Signs: Last Vital Signs Pulse 72 11/19/24 14:25 BP 176/78 H 11/19/24 14:25 Const General: comfortable and no acute distress GI Other: Left inguinal hernia repair site well healed, not infected, repair intact, no signs of infection Assessment & Plan Assessment & Plan (1) Left inguinal hernia: Code(s): K40.90 - Unilateral inguinal hernia, without obstruction or gangrene, not specified as recurrent Category: Surgical Plan: Status post repair with mesh. He is doing very well. The incision is well healed. The repair site is intact I advised him to avoid lifting anything more than 20 lb for at least 2 more weeks. He can otherwise follow up with me on a p.r.n. basis. Medications: New ibuprofen 400 mg PO TID PRN 20 tabs 0RF pain Coding Level of Care Code Global (01445) Diagnoses Left inguinal hernia K40.90
[2024-11-19 14:25] VITALS: BP 176/78; PULSE 72
--- OUTSIDE RECORDS SUMMARY | 2024-11-19 15:03 | XMS_ITS | Encounter Summary ---
Author Organization [employer] Address [address] [facility] 7 [place] [address] Care Team Providers Care Board Catcher Name Role Phone Yvette Hahn MD Primary Care Provider [phone] Reason for Referral * Consultation (Routine) - Closed Specialty Diagnoses / Procedures Referred By Contac t Referred To Contact Pharmacy Diagnoses Primary hypertension Yvette Hahn MD [address] [place] [phone] Phone: tel: fax: Referral ID Status Reason Start Date Expiration Date V isits Requested Visits Authorized [id number] Closed Consult and Treat 08/01/2023 07/31/2024 1 1 Encounter Details Date Type Department Care Team ([facility] st Contact Info) Description 08/01/2023 Orders Only [facility] [address] [place] [address] [phone] Yvette Hahn MD [address] [place] [address] [phone] Primary hypertension (Primary Dx) Social History Tobacco [...] documented as of this encounter Care Teams Board Catcher Relationship Specialty Start Date End Date Yvette Hahn MD [address] [place] [phone] PCP - General Family Medicine 04/15/20 documented as of this encounter
== END 2024-11-19 14:52 | disposition home or self-care (01) ==
LOC: HO.HGS 14:14
PROVIDERS: Visit Provider Surgery
DX: K40.90 Unilateral inguinal hernia, without obstruction or gangrene, not specified as recurrent (principal)
CPT/HCPCS: 99024

== ENCOUNTER → 2024-11-19 14:14 | Outpatient (BNVA) | payer OTHER, SELFPAY | PROVIDERS: Visit Provider Surgery | DX: K40.90 Unilateral inguinal hernia, without obstruction or gangrene, not specified as recurrent (principal); Z98.890 Other specified postprocedural states | CPT/HCPCS: 99212 ==